=== PATIENT | male | born 1950 | race Caucasian/White ===

== ENCOUNTER → 2020-08-25 00:24 | Outpatient (CLI) | payer OTHER, SELFPAY ==
[2020-08-25 18:31] LABS: SARS-CoV-2 RNA PCR Negative
== END ==
PROVIDERS: PCP Family Medicine; Visit Provider Internal Medicine Critical Care Medicine
DX: Z01.812 Encounter for preprocedural laboratory examination (principal); Z20.822 Contact with and (suspected) exposure to COVID-19
CPT/HCPCS: C9803; U0003; U0005

== ENCOUNTER → 2020-08-31 00:27 | Outpatient (CLI) | payer OTHER, SELFPAY ==
[2020-08-31 19:29] LABS: SARS-CoV-2 RNA PCR Negative
== END ==
PROVIDERS: PCP Family Medicine; Visit Provider Internal Medicine Critical Care Medicine
DX: R68.89 Other general symptoms and signs (principal); Z20.822 Contact with and (suspected) exposure to COVID-19
CPT/HCPCS: C9803; U0003; U0005

== ENCOUNTER 2020-09-02 00:46 | Outpatient (CLI) | payer OTHER, SELFPAY ==
--- NOTE | 2020-09-09 20:58 | WPDSLEEPSTUD ---
Sleep Study Date of Study: 09/02/20 Ordering Provider: William Rosas MD Interpreting Physician: Kylee Quintero MD Sleep Study Type: Polysomnogram Height: 1.73 m Weight: 86.183 kg Body Mass Index: 28.8 Neck Circumference (inches): 15.5 [place]: 13 Reason for Sleep Study Poor sleep for years, difficulty getting to sleep and staying asleep, cannot sleep in the day, only 3-4 hour intervals. Home sleep test with less than 2 hours of data, not reliable Sleep History Charlie Woodall is a 70-year-old man who has difficulty sleeping during the day. He describes having fragmented sleep. He snores, his sleep is not restorative and he has been told he stops breathing while sleeping. He occasionally awakens from sleep feeling short of breath. He rarely awakens at night with heartburn, belching or coughing. He occasionally snores and occasionally is loud enough that others complain about it. He rarely has trouble sleeping with a cold. He rarely gasp for breath at night. He occasionally has breathing problems at night observed by others. He rarely sweats excessively at night and rarely notes his heart pounding or beating irregularly at night. He occasionally falls asleep during the day, occasionally involuntarily, rarely while driving. He does not have loss of muscle tone with strong emotion. He frequently has daytime difficulties due to his excessive sleepiness. He rarely feels paralyzed on waking or falling asleep. He rarely has nightmares. He occasionally remembers his dreams. He frequently has racing thoughts. He occasionally feels sad, depressed or anxious. He frequently has muscular tension. He rarely notices parts of his body jerking and he rarely kicks at night. He does not have crawling or aching feelings in his legs. He occasionally has leg pain at night. He rarely has morning jaw pain and rarely grinds his teeth during sleep. He frequently wakes up feeling stiff in the morning with sore or achy muscles. He frequently wakes up with pain in the neck and spine. He has fatigue, short term memory problems, tension. His normal bedtime is between 2:00 a.m. and 6:00 a.m. 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 He previously worked from 6:00 p.m. until 2:00 a.m., would come home and sleeps from 2:00 a.m. until 6:00 a.m. and then return to sleep in the afternoon from 1:00 p.m. to 4:30 p.m.. It takes him between 45 minutes to an hour to fall asleep. He typically wakes 2-3 times after he falls asleep. During these awakenings, he usually stays awake for 1-2 hours. When he awakes, he goes to urinate and he may watch the news. During the work week, he sleeps during the day. On weekends, he sleeps at night. He is not able to sleep more than 4-5 hours total during the day, and cannot sleep after 3:00 p.m. He does not drink coffee or tea within 2 hours of his expected bedtime. He takes naps in the afternoon or evening. A short nap is not refreshing. He never feels rested. He frequently has daytime sleepiness, and excessive sleepiness that impacts his job. He is really sleepy at 2:00 a.m. while at work. He has problems with sexual functioning. He occasionally has memory or concentration problems. He rarely has morning headaches. He rarely awakens feeling refreshed. Habits: Never smoked tobacco. Caffeine 6 cups at work. No alcohol or recreational drugs. [facility] Past Medical History Medical History (Updated 09/10/20 @ 13:19 by Kylee Quintero MD) Depression Erectile dysfunction Fatigue Heartburn Hypersomnolence Shift work sleep disorder Family History Family History (System 08/27/20 @ 10:29 by Irma Irizarry) Father Hypertension Family history of elevated blood lipids Family history of cardiovascular disease Mother Hypertension Family history of cardiovascular disease Social History Social History (Updated 09/09/20 @ 21:08 by Kylee Quintero MD) Smoking stat
[2020-09-10 13:20] VITALS: BMI 28.8
== END 2020-09-02 00:47 | disposition home or self-care (01) ==
PROVIDERS: PCP Family Medicine; Visit Provider Otolaryngology
DX: G47.26 Circadian rhythm sleep disorder, shift work type (principal); R06.83 Snoring; G47.10 Hypersomnia, unspecified
CPT/HCPCS: 95810

== ENCOUNTER 2020-09-10 09:21 | Outpatient (CLI) | payer OTHER, SELFPAY | END 2020-09-10 09:22 | disposition home or self-care (01) | LOC: ANHCOVIDVC 09:21 | PROVIDERS: PCP Family Medicine | DX: Z23 Encounter for immunization (principal) | CPT/HCPCS: 0001A; 91300 ==

== ENCOUNTER 2020-10-01 09:20 | Outpatient (CLI) | payer OTHER, SELFPAY | END 2020-10-01 09:21 | disposition home or self-care (01) | LOC: ANHCOVIDVC 09:20 | PROVIDERS: PCP Family Medicine | DX: Z23 Encounter for immunization (principal) | CPT/HCPCS: 0002A; 91300 ==

== ENCOUNTER 2021-07-16 00:55 | Day surgery (SDC) | payer OTHER, MEDICARE, SELFPAY ==
[2021-07-02 11:44] VITALS: BMI 28.8
[2021-07-16 12:31] VITALS: BP 109/66; PULSE 70; RESP 16; TEMP 36.5; O2SAT 99; BMI 27.6
--- NOTE | 2021-07-16 12:35 | WPDGICN ---
Assessment and Plan Assessment and plan (1) Colon polyp: Code(s): K63.5 - Polyp of colon Status: Acute Assessment and Plan: Patient has a history of colon polyps removed. Plan is for surveillance colonoscopy now and at intervals in the future. (2) Non-small cell lung cancer: Code(s): C34.90 - Malignant neoplasm of unspecified part of unspecified bronchus or lung Status: Acute Assessment and Plan: Patient recovering from lung lobectomy for non-small all cell lung cancer. Currently felt to be free of disease continued pulmonary follow-up advised. GI Consult Note Consult date/time: 07/16/21 12:35 HPI: Charlie Woodall is a 71 year old male Presents for screening colonoscopy. He reports his current weight appetite bowel movements are normal. He denies abdominal pain. He has had no bleeding. Family history noncontributory patient does have a prior history of colon polyps last colonoscopy was 4 or 5 years ago. Patient reports he is recovering. Had lung cancer status post lobectomy in his lung is currently doing well felt to be free of disease. Review of Systems Review of Systems: All systems reviewed & are unremarkable except as noted in HPI and below PMFSH Past Medical History Medical History (Updated 06/10/21 @ 12:07 by Veto Guillermo PA-C) Depression Erectile dysfunction Fatigue Heartburn Hypersomnolence Primary lung adenocarcinoma T1bN0; RLL wedge lobectomy 12/14/20 Shift work sleep disorder Family History Family History Father Hypertension Family history of elevated blood lipids Family history of cardiovascular disease Mother Hypertension Family history of cardiovascular disease Social History Social History (Updated 09/09/20 @ 21:08 by Kylee Quintero MD) Smoking status: Never smoker Alcohol intake: current Substance use: never Substance use type: does not use Living arrangements: with family Spiritual care concerns: No Meds Home Medications and Allergies Home Medications Medication Instructions Recorded Confirmed Type tadalafil 10 mg tablet 10 mg PO DAILY PRN #30 tablet 06/10/21 07/16/21 Rx Allergies Allergy/AdvReac Type Severity Reaction Status Date / Time No Known Allergies Allergy Verified 07/16/21 12:30 Vital Signs Vital Signs - 24 hr 07/16/21 12:31 Temperature 97.7 F Pulse Rate 70 Respiratory Rate 16 Blood Pressure 109/66 Pulse Oximetry 99 Exam Narrative: Physical exam reveals patient be alert. Vital signs stable. HEENT exam is unremarkable. Patient is anicteric. Lungs are clear to auscultation and percussion. Heart is without murmur or extra sounds. Abdominal exam bowel sounds present soft nontender with no organomegaly. Digital external rectal exam normal.
[2021-07-16] MEDS: LACTATED RINGERS 1,000 ML 150 ML IV CONT (12:39)
--- NOTE | 2021-07-16 12:42 | WPDANESEPPF ---
Anes - Initial Pre Proc Eval Procedure: Operation Date: 07/16/21 13:30 Proposed Procedures p Screening Colonoscopy - Pio Oneill MD Date/Time: 07/16/21 12:42 Surgeon: Pio Oneill MD Pre Op Diagnosis: hx of colon polyps Patient Data Age: 71 Gender: M Height: 1.73 m Weight: 82.3 kg Last Vital Signs Temp 97.7 F 07/16/21 12:31 Pulse 70 07/16/21 12:31 Resp 16 07/16/21 12:31 BP 109/66 07/16/21 12:31 Pulse Ox 99 07/16/21 12:31 Allergies Allergy/AdvReac Type Severity Reaction Status Date / Time No Known Allergies Allergy Verified 07/16/21 12:30 Home Medications Medication Instructions Recorded Confirmed Type tadalafil 10 mg tablet 10 mg PO DAILY PRN #30 tablet 06/10/21 07/16/21 Rx Patient hx anesthesia problems: none Family hx anesthesia problems: none Results Review: All pre-operative results and documents have been reviewed as part of the pre-operative evaluation. [facility] Past Medical History Medical History (Updated 06/10/21 @ 12:07 by Veto Guillermo PA-C) Depression Erectile dysfunction Fatigue Heartburn Hypersomnolence Primary lung adenocarcinoma T1bN0; RLL wedge lobectomy 12/14/20 Shift work sleep disorder Family History Family History Father Hypertension Family history of elevated blood lipids Family history of cardiovascular disease Mother Hypertension Family history of cardiovascular disease Social History Social History (Updated 09/09/20 @ 21:08 by Kylee Quintero MD) Smoking status: Never smoker Alcohol intake: current Substance use: never Substance use type: does not use Living arrangements: with family Spiritual care concerns: No Anes - Eval Final PreProcedure Day of Procedure 07/16/21 12:42 Patient weight: overweight Heart: regular rate and rhythm Lungs: clear to auscultation Airway: Mallampati scale class II Neurological: alert and oriented Last oral intake: >/= 8 hours ASA classification: II Emergent: no Anesthetic plan: proceed Anesthesia type and monitoring: general GIVS and standard monitoring Results Review: All pre-operative results and documents have been reviewed as part of the pre-operative evaluation. Informed Consent: The patient's anesthetic plan and its attendant risks and benefits were discussed with the patient/family/POA. Questions were solicited and answers provided to the satisfaction of the patient/family/POA.
[2021-07-16 13:06] VITALS: BP 90/55; PULSE 74; RESP 22; O2SAT 98
[2021-07-16 13:16] VITALS: BP 115/68; PULSE 67; RESP 21; O2SAT 100
[2021-07-16 13:26] VITALS: BP 124/79; PULSE 69; RESP 21; O2SAT 100
--- NOTE | 2021-07-16 13:47 | SUR.OPER ---
Reported to Dr. Oneill that we were only able to retrieve 2 of the 3 Ascending colon polyps in the specimen jar.
== END 2021-07-16 14:00 | disposition home or self-care (01) ==
PROVIDERS: PCP Family Medicine; Visit Provider Internal Medicine Gastroenterology
PROC: 0DJD8ZZ Inspection of Lower Intestinal Tract, Via Natural or Artificial Opening Endoscopic (ICD-10-PCS; CPT 45378; principal; 2021-07-16 13:30)
DX: Z12.11 Encounter for screening for malignant neoplasm of colon (principal); D12.2 Benign neoplasm of ascending colon; D12.3 Benign neoplasm of transverse colon; Z85.118 Personal history of other malignant neoplasm of bronchus and lung; Z90.2 Acquired absence of lung [part of]; N52.9 Male erectile dysfunction, unspecified
CPT/HCPCS: 45385; 88305; J2001; J2704; J7120

== ENCOUNTER 2021-07-25 08:39 | Observation (INO) | payer OTHER, MEDICARE, SELFPAY ==
[2021-07-25 08:54] VITALS: BP 158/83; PULSE 81; RESP 18; TEMP 36.7; O2SAT 97
--- NOTE | 2021-07-25 09:11 | ED.MALEGU ---
HPI - Male Genitourinary General Chief complaint: Urogenital-Male Stated complaint: male urogenital Time Seen by Provider: 07/25/21 09:03 History of Present Illness HPI Narrative: 71-year-old male presents to the emergency room with acute onset of urinary retention. Patient states he was seen at an urgent care 2 days ago for urinary retention and dysuria. Was evaluated and treated for urinary tract infection at that time. Patient states he has developed lower abdominal distention and discomfort. Denies nausea vomiting diarrhea constipation denies fever Related Data Allergies Allergy/AdvReac Type Severity Reaction Status Date / Time No Known Allergies Allergy Verified 07/16/21 12:30 Review of Systems Review of Systems: CONSTITUTIONAL: Denies fever, chills, or sweats. EYES: Denies visual changes, redness, or discharge. ENT: Denies rhinorrhea, congestion, sore throat, or otalgia. CARDIOVASCULAR: Denies chest pain, palpitations, or edema. RESPIRATORY: Denies cough or dyspnea. GASTROINTESTINAL: Reports lower abdominal pain. denies nausea, vomiting, or diarrhea. GENITOURINARY: Per HPI, urinary retention. SKIN: Denies rash or itching. MUSCULOSKELETAL: Denies back pain, joint pain, or myalgia. NEUROLOGIC: Denies headache, numbness, dizziness, or weakness. PSYCHIATRIC: Denies anxiety or depression. PMFSH Past Medical History Medical History Depression Erectile dysfunction Fatigue Heartburn Hypersomnolence Primary lung adenocarcinoma T1bN0; RLL wedge lobectomy 12/14/20 Shift work sleep disorder Family History Family History Father Hypertension Family history of elevated blood lipids Family history of cardiovascular disease Mother Hypertension Family history of cardiovascular disease Social History Social History Smoking status: Never smoker Alcohol intake: current Substance use: never Substance use type: does not use Spiritual care concerns: No Exam Narrative: GENERAL: Well-appearing, well-nourished, and in no acute distress. HEAD: Normocephalic, atraumatic. EYES: PERRLA and EOMI. ENT: Nares clear, no rhinorrhea or epistaxis. Mucous membranes moist. Oropharynx without tonsillar hypertrophy exudate or other lesions. Bilateral TMs pearly aguirre nonbulging NECK: Supple. No adenopathy or masses. No carotid bruits or JVD CHEST: Clear to auscultation. No respiratory distress. No wheezes rales or rhonchi HEART: Regular rate and rhythm. No murmur heard. Normal peripheral pulses. ABDOMEN: Distended lower abdomen, normal active bowel sounds. EXTREMITIES: Normal range of motion. No edema. SKIN: Warm, dry, no rash. NEURO: No focal deficits. Alert and oriented x3. PSYCH: Normal mood and affect. Course Course Emergency Course: Bladder scanner is a greater than 1000 mL of fluid. Ventura anchored. 1800 cc of urine output. 1015: Consulted with Dr. Gutierrez, recommends observation admission with every 8 hour CMP. 1045: Consulted with Dr. Blanco, hospitalist. Will admit patient to [facility], 23 hour obs. Vital Signs Vital signs: Vital Signs Temperature 36.7 C 07/25/21 08:54 Pulse Rate 81 07/25/21 08:54 Respiratory Rate 18 07/25/21 08:54 Blood Pressure 158/83 H 07/25/21 08:54 Pulse Oximetry 97 07/25/21 08:54 Temperature 36.7 C 07/25/21 08:54 Pulse Rate 81 07/25/21 08:54 Respiratory Rate 18 07/25/21 08:54 Blood Pressure 158/83 H 07/25/21 08:54 Pulse Oximetry 97 07/25/21 08:54 MDM - Male Genitourinary MDM Narrative Medical decision making narrative: 71-year-old male patient came to the emergency room with complaints of urinary retention for 3 days. Was recently being evaluated for enlarged prostate, under Dr. Mast. Was evaluated in an emergency room in [place] 2 days ago for urinary retention, diagnosed
[2021-07-25 09:16] LABS: Basophils Percent Auto 0.1 % (0.2-1.2); Hemoglobin 14.1 g/dL (14.0-18.0); Immature Granulocyte Absolute 0.07 K/mm3 (0.00-0.031); Immature Granulocyte Percent A 0.4 % (0-0.5); Lymphocytes Absolute Auto 0.75 K/mm3 (0.9-3.2); Lymphocytes Percent Auto 4.7 % (18.3-44.2); Mean Corpuscular HGB Conc 34.4 g/dl (32-36); Mean Corpuscular Volume 90.1 fl (80-100); Mean Platelet Volume 10.3 fl (7.4-10.4); Monocytes Absolute Auto 1.4 K/mm3 (0.1-0.6); Monocytes Percent Auto 8.6 % (2.6-8.5); Neutrophils Absolute Auto 13.8 K/mm3 (1.3-6.7); Neutrophils Percent Auto 86.2 % (45.5-73.1); Platelet Count Result 275 k/mm3 (150-375); Red Blood Count 4.55 M/mm3 (4.6-6.20); Red Cell Distribution Width 12.9 % (11.5-14.5)
[2021-07-25 09:20] LABS: Add Urine Microscopic? YES; Appearance Urine Clear (Clear); Bacteria Urine Trace /hpf; Bilirubin Urine Negative (Negative); Blood Urine 1+ (Negative); Color Urine Amber (Yellow); Glucose Urine UA Negative (Negative); Ketones Urine Negative (Negative); Leukocyte Esterase Ur Negative LEU/UL (Negative); Nitrate Urine Positive (Negative); Protein Urine Negative (Negative); RBC Urine 21-50 /hpf (0-2); Specific Grav Ur 1.012 (1.001-1.035); Squamous Epithelial Cell Urine Rare /hpf (Few)
[2021-07-25 09:26] LABS: Alanine Aminotransferase 24 U/L (4-50); Albumin Level 4.3 g/dL (3.5-5.1); Alkaline Phosphatase 71 U/L (38-126); Anion Gap 10 mmol/L (8-16); Aspartate Amino Transferase 34 U/L (17-59); Bilirubin,Total 1.2 mg/dL (0.2-1.3); Blood Urea Nitrogen 27 mg/dL (9-20); Calcium 9.1 mg/dL (8.4-10.2); Carbon Dioxide 20 mmol/L (22-30); Chloride 100 mmol/L (98-107); Estimated CRCL calculation 26 ml/min; Estimated Glomerular Filt Rate 27; Glucose 123 mg/dL (65-110); Potassium 3.9 mmol/L (3.4-5.0); Sodium 130 mmol/L (137-145)
[2021-07-25] MEDS: SODIUM CHLORIDE 0.9% IV 1,000 ML 250 ML IV CONT (09:42)
--- NOTE | 2021-07-25 10:30 | PC.NURSE ---
IVF rate changed to 100ml/hr per EDP
[2021-07-25 10:51] VITALS: BP 168/78; PULSE 68; RESP 16; O2SAT 100
--- NOTE | 2021-07-25 11:36 | WPDURCON ---
Assessment and Plan Assessment and plan (1) Urinary retention: Code(s): R33.9 - Retention of urine, unspecified Status: Acute Assessment and Plan: -Ventura catheter placed in ER is draining well, would continue for now and likely beyond discharge -please start Flomax - (2) Acute kidney injury: Code(s): N17.9 - Acute kidney failure, unspecified Status: Acute Assessment and Plan: -likely due to acute urinary retention, would expect relatively rapid improvement now the bladder is decompressed -given creatinine derangement may be a risk of postobstructive diuresis, which can lead to electrolyte abnormalities. As a result would maintain in hospital for observation his creatinine normalizes. -recommend Q 8 hour renal function panels with repletion of any electrolyte abnormalities -drink to thirst, IV fluids at 125 per hour normal saline, do not need to replace large volumes of fluid his diuresis is usually relatively short-lived as long as patient is feeling okay (3) Urinary tract infection: Code(s): N39.0 - Urinary tract infection, site not specified Status: Acute Assessment and Plan: Patient was diagnosed with UTI in [place], these lab results are not available. -please send urine culture - would continue cefdinir for 7 days total given UTI may have been predisposing factor leading to retention Additional Plan Urology Service will follow total duration of consult including history, exam, review of records, counselling, documentation - 40 minutes Urology Consult Note HPI Date Seen: 07/25/21 Primary Care Provider: Gigi Cornell MD Consult Narrative Narrative: Charlie Woodall is a 71 year old male with a history of BPH and elevated PSA Sineff follows with my partner Dr. Mast presenting to the emergency department this morning with complaint of urinary retention times approximately 3 days and Urology was consulted for assistance with management. Patient reports over the last week he was actually on its normal viewing trip in [facility], this week he developed pelvic discomfort, dribbling of urine, weak stream and feeling of incomplete urinary emptying. He did not have substantial dysuria, hematuria, fevers or chills. He did develop some mid lower back pain. He continued to have challenges urinating, he presented to an emergency department in [facility] on Monday and was told he had a urinary tract infection. It is unclear whether he was evaluated for urinary retention a renal function panel was sent. He was discharged home with Pyridium and Cefdinir. He continued to have challenges voiding following discharge, he flew home from [place] yesterday. He denies lower extremity swelling, chest pain, shortness of breath, GI distress. This morning continued to have abdominal pain and inability urinate and presented to the emergency department here at [facility]. On evaluation emergency room bladder scan demonstrated a 1000 cc of urine in the bladder, Ventura catheter was placed without difficulty with initial return of about 2 L of total fluid. Chemistry panel demonstrated acute renal insufficiency. Creatinine 2.40, previously his creatinine was normal at 1.04 in May 2021. After Ventura catheter decompression the patient feel significant relief of pelvic plain. Patient received a prostate MRI 07/15/2021 for workup of PSA of 9.9, this demonstrated a 82 g prostate and a single PI-RADS 4 lesion. He is n planning on a fusion biopsy in the near future with with Dr. Mast. Review of Systems Review of Systems: All systems reviewed & are unremarkable except as noted in HPI and below PMFSH Past Medical History Medical History Depression Erectile dysfunction Fatigue Heartburn Hypersomnolence Primary lung adenocarcinoma T1bN0; RLL wedge lobectomy 12/14/20 Shift work sleep disorder Family History Family
[2021-07-25 12:22] VITALS: BP 135/71; PULSE 87; RESP 16; O2SAT 97
[2021-07-25 12:50] VITALS: BP 141/72; PULSE 74; RESP 17; TEMP 36.3; O2SAT 98
--- NOTE | 2021-07-25 12:54 | PM.IMHP ---
H&P: HPI History of Present Illness Date/Time: Patient was placed observation status for expected length of stay less than 23 hours for management, will plan to re-evaluate tomorrow for improvement. 07/25/21 12:54 Chief Complaint: Oliguria Narrative: Mr. Woodall is a 71-year-old gentleman who presented emergency room with the inability to pee for the last 2 days. Patient states he has a known history of lung cancer status post right lower lobe lobectomy. Patient states that he was in [place] snownybiling and after he was done snowmobiling and he noticed he was having very little urine output. Patient states that he went to an emergency room in [place] and he asked for Ventura catheter and they refused to give him 1 and he was sent home. Patient states that he then flew back to this area and came to the emergency room. Patient states over the last 2 days he has had extremely low urine output. Patient states if he has any urine output he does have dysuria with urination. Patient denies any fever or chills. Patient denies any shortness of breath. Patient denies any CVA tenderness. Upon evaluation in emergency room patient was noted have a distended bladder and acute kidney injury and a Ventura catheter was placed and 2 L urine returned quickly. Patient states that he believes he has had a history of this in the past, but he does not have frequent urinary tract infections. Review of Systems Review of Systems: A 12 point review of systems was completed patient all pertinent positive and negative per HPI the remainder are unremarkable. [facility] Past Medical History Medical History (Updated 07/25/21 @ 13:02 by Geovanna Reed APRN) Depression Erectile dysfunction Fatigue Heartburn Hypersomnolence Primary lung adenocarcinoma T1bN0; RLL wedge lobectomy 12/14/20 Shift work sleep disorder Surgical History Surgical History (Updated 07/25/21 @ 12:59 by Geovanna Reed APRN) History of tonsillectomy Status post lobectomy of lung Right lower lobe lobectomy Family History Family History Father Hypertension Family history of elevated blood lipids Family history of cardiovascular disease Mother Hypertension Family history of cardiovascular disease Social History Social History Smoking status: Former smoker Alcohol intake: current Substance use: never Substance use type: does not use Spiritual care concerns: No Meds Home Medications and Allergies Home Medications Medication Instructions Recorded Confirmed Type tadalafil 10 mg tablet 10 mg PO DAILY PRN #30 tablet 06/10/21 07/16/21 Rx Allergies Allergy/AdvReac Type Severity Reaction Status Date / Time No Known Allergies Allergy Verified 07/25/21 11:28 Vital Signs Vital Signs - 24 hr 07/25/21 08:54 07/25/21 10:51 07/25/21 12:22 Temperature 36.7 C Pulse Rate 81 68 87 Respiratory Rate 18 16 16 Blood Pressure 158/83 H 168/78 H 135/71 Pulse Oximetry 97 100 97 Exam Narrative: Constitutional: Patient is well-nourished in no acute distress. Patient is alert oriented x3 HEENT: Moist mucous membranes. No scleral icterus. No lymphadenopathy. Neck: No carotid bruits noted no JVD noted Lungs: Lung sounds are clear to auscultation bilaterally. No accessory muscle use. No rhonchi, rales, or wheezes noted. Cardiovascular: Apical pulse is regular rate and rhythm. S1-S2 noted, no S3 or S4 noted. No gallops, murmurs, or rubs noted. Abdomen: Soft, round, and nontender. No palpable masses. Extremities: No edema. Nontender. : Ventura catheter is in place draining a clear yellow urine Skin: No rashes or lesions. Warm and dry. Skin is intact. Neurological: No focal neurological deficits. Cranial nerves II-XII grossly intact. Psychiatric: Cooperative, appropriate mood, and affect H&P: Results Labs Labs: Short CB
--- NOTE | 2021-07-25 13:01 | ADMGEN ---
This patient, Charlie Woodall, was admitted to 2 Medical Room 240-. Patient/family oriented to hospital policies and general routines including ID bracelet, bed and alarms, visiting hours, pain management, procedures, bathroom and other care routines, personal items, smoking policy, room service/diet, and visiting hours. Information on how to activate the Rapid Response Team has been discussed. Patient/Family are encouraged to report perceived risks to care and to ask questions if they do not understand what they are told or what they should do.
[2021-07-25 14:00] VITALS: BP 137/68; PULSE 98; RESP 17; TEMP 36.5; O2SAT 98
[2021-07-25] MEDS: TAMSULOSIN HCL 0.4 MG CAPSULE PO (14:00)
[2021-07-25 19:08] VITALS: BP 129/68; PULSE 89; RESP 17; TEMP 36.1; O2SAT 97
[2021-07-25] MEDS: HEPARIN SODIUM 5,000 UNITS/ML VIAL 5000 UNITS SUB-Q (20:28)
[2021-07-26 03:11] VITALS: BP 131/77; PULSE 85; RESP 17; TEMP 36.4; O2SAT 96
[2021-07-26 05:29] LABS: Basophils Percent Auto 0.4 % (0.2-1.2); Eosinophils Absolute Auto 0.1 K/mm3 (0-0.3); Eosinophils Percent Auto 0.8 % (0-4.4); Hematocrit 38.7 % (42.0-52.0); Immature Granulocyte Absolute 0.05 K/mm3 (0.00-0.031); Immature Granulocyte Percent A 0.5 % (0-0.5); Lymphocytes Absolute Auto 1.51 K/mm3 (0.9-3.2); Lymphocytes Percent Auto 14.2 % (18.3-44.2); Mean Corpuscular HGB Conc 33.6 g/dl (32-36); Mean Corpuscular Hemoglobin 31.2 pg (26-34); Mean Corpuscular Volume 92.8 fl (80-100); Mean Platelet Volume 10.9 fl (7.4-10.4); Monocytes Absolute Auto 1.1 K/mm3 (0.1-0.6); Neutrophils Absolute Auto 7.9 K/mm3 (1.3-6.7); Neutrophils Percent Auto 74.1 % (45.5-73.1); Platelet Count Result 252 k/mm3 (150-375); Red Blood Count 4.17 M/mm3 (4.6-6.20); Red Cell Distribution Width 13.2 % (11.5-14.5); White Blood Count 10.7 K/mm3 (4.5-10.0)
[2021-07-26 05:49] LABS: Alanine Aminotransferase 21 U/L (4-50); Albumin Level 3.5 g/dL (3.5-5.1); Alkaline Phosphatase 62 U/L (38-126); Anion Gap 6 mmol/L (8-16); Aspartate Amino Transferase 22 U/L (17-59); Bilirubin,Total 0.9 mg/dL (0.2-1.3); Blood Urea Nitrogen 16 mg/dL (9-20); Calcium 9.1 mg/dL (8.4-10.2); Carbon Dioxide 25 mmol/L (22-30); Chloride 105 mmol/L (98-107); Estimated CRCL calculation 60 ml/min; Estimated Glomerular Filt Rate > 60; Glucose 97 mg/dL (65-110); Potassium 3.6 mmol/L (3.4-5.0); Sodium 136 mmol/L (137-145)
[2021-07-26 08:10] VITALS: O2SAT 97
--- NOTE | 2021-07-26 08:30 | PM.DS ---
DS: Admitting Diagnosis Discharge Date 07/26/21829 Admitting Diagnosis Urinary retension DS: Discharge Diagnosis Discharge Diagnosis (1) Urinary tract infection: Code(s): N39.0 - Urinary tract infection, site not specified Status: Acute Assessment and Plan: Patient received a dose of Rocephin in the emergency room. Patient's urinalysis does for nitrates and mostly equally. Will continue with Rocephin and await culture and sensitivities. (2) Acute kidney injury: Code(s): N17.9 - Acute kidney failure, unspecified Status: Acute Assessment and Plan: Most likely secondary to obstructive uropathy from BPH. Urology has seen patient and recommended Flomax and a Ventura catheter which has been done. Will continue to hydrate patient and monitor BUN and creatinine closely. Laboratory show a postrenal azotemia by BUN creatinine ratio of 11. (3) Obstructive uropathy: Code(s): N13.9 - Obstructive and reflux uropathy, unspecified Status: Acute Assessment and Plan: Secondary to BPH. Urology has seen patient placed on Flomax. Will continue with medication. Urology states the patient will most likely need to keep Ventura catheter in place and follow-up as an outpatient. DS: Summary Hospital Course Hospital Course: Patient is a 71-year-old male with a past medical history of GERD and adenocarcinoma with thoracotomy. Patient was up in [place] [facility] when he noticed that he was not urinating as much as sees normally used to. Patient went to the ED in [place] and was discharged with antibiotics. Patient then came back to the area notice that nothing has changed. He finally came to the ER for evaluation of pelvic pain. They did insert a Ventura catheter which did yield a little over 2 L in fluid. Patient currently has a Ventura catheter in place and the pelvic pain is gone and dissipated. Patient stated that he was unable to eat due to the pain however he was able to eat a full tray this morning his appetite has returned back to normal. BUN and creatinine were also noted to be 27/2.40. UA did show positive nitrates, WBCs of 10 to 15 with trace bacteria. Urology was consulted and will follow up with the patient in the office for voiding trial and a prostate fusion. Patient is ready to go and denies any chest pain, nausea, vomiting, diarrhea, constipation, weakness, fatigue. Patient did state that he has some shortness of breath however he has had that since he has had right lung cancer and had the thoracotomy. He also stated that he has upper respiratory rattle which he stated is normal for him as well. Urology has added Flomax to his medication regimen. Status at Discharge Functional status at discharge: independent ambulation Overall status at discharge: patient is progressing back to baseline Time Spent with Patient Time attestation: Total time spent providing and/or coordinating discharge services: 42 minutes Time spent: Greater than 30 minutes Specific discharge activities: Diagnostic testing, chart review, developing a treatment plan, education, care coordination documentation, physical exam, result review Exam Const: General: cooperative, healthy appearing, no acute distress, well developed, alert and awake Nutritional Appearance: well nourished Orientation/consciousness: patient oriented x3 Limitations: no limitations HENMT: Head: normal to inspection Ears: hearing grossly normal bilaterally General nose exam: Normal external nose present Mouth: Yes Normal oral and palatal mucosa present, Yes lip normal and Yes tongue normal Teeth and gingiva: abnormal tooth and associated gingiva and poor dentition Eyes: General: appearance normal, both eyes and all related structures Neck: Neck: normal visual inspection, full ROM, trachea midline and supple Chest: Chest palpation & inspection: normal inspection of the chest Resp: Effort & Inspection: normal respiratory effort and able to spe
[2021-07-26] MEDS: HEPARIN SODIUM 5,000 UNITS/ML VIAL 5000 UNITS SUB-Q (08:57)
[2021-07-26] MEDS: TAMSULOSIN HCL 0.4 MG CAPSULE PO (08:58)
--- NOTE | 2021-07-26 11:12 | WPDUROPN2 ---
Progress Note: A&P Assessment and Plan (1) Obstructive uropathy: Code(s): N13.9 - Obstructive and reflux uropathy, unspecified Status: Acute (2) Urinary tract infection: Code(s): N39.0 - Urinary tract infection, site not specified Status: Acute Assessment and Plan: Urine culture is pending, however he was on Cefdinir from his previous ER visit. He will continue these antibiotics when he arrives home. Will look for urine culture results and tailor antibiotics if necessary. (3) Acute kidney injury: Code(s): N17.9 - Acute kidney failure, unspecified Status: Acute Assessment and Plan: Resolved, creatinine is now 1.00. (4) Urinary retention: Code(s): R33.9 - Retention of urine, unspecified Status: Acute Assessment and Plan: Patient ok to be discharged home with johnson leg bag. He will change to a larger bag at nighttime. He will follow up next week in the office for a voiding trial and continue Tamsulosin. Subjective Subjective Date/Time Seen: 07/26/21 11:12 Patient is doing well today with his johnson. He has no complaints or pain. Review of Systems Respiratory: Respiratory: Reports no additional respiratory complaints Gastrointestinal: Gastrointestinal: Denies abdominal pain, Denies nausea and Denies vomiting Genitourinary: Genitourinary: Denies hematuria, Denies flank pain, Denies urinary frequency, Reports urinary hesitancy and Denies urinary urgency Exam Resp: Effort & Inspection: normal respiratory effort Cardio: Rate: regular rate GI: GI Palp: Yes Soft to palpation and No Tenderness to palpation present (GI) : General: Yes no CVA tenderness Urinary Catheter: Urinary Catheter: patent and draining and urine clear Extrem: General: no edema Objective Data Vital Signs Vital Signs: Vital Signs - 24 hr 07/25/21 12:22 07/25/21 12:50 07/25/21 14:00 Temperature 97.3 F L 97.7 F Pulse Rate 87 74 98 Respiratory Rate 16 17 17 Blood Pressure 135/71 141/72 H 137/68 Pulse Oximetry 97 98 98 07/25/21 19:08 07/26/21 03:11 07/26/21 08:10 Temperature 97 F L 97.5 F L Pulse Rate 89 85 Respiratory Rate 17 17 Blood Pressure 129/68 131/77 Pulse Oximetry 97 96 97 Intake/Output Intake/Output: Intake & Output 07/23/21 07/24/21 07/25/21 07/26/21 23:59 23:59 23:59 23:59 Intake Total 530 1110 Output Total 4100 0 Balance -2320 -090 Meds/Results Medications: Active Medications Generic Name Dose Route Start Last Admin Trade Name Leonidesq PRN Reason Stop Dose Admin Heparin Sodium (Porcine) 5,000 units 07/25/21 21:00 07/26/21 08:57 Heparin Sodium 5,000 Units/Ml Vial SUB-Q 5,000 units Q12HR JOSE Administration Ceftriaxone Sodium/Dextrose 1 gm in 50 mls @ 100 mls/hr 07/26/21 09:00 07/26/21 09:27 Rocephin 1 Gm/D5w 50 Ml IVPB Infused Q24H JOSE Infusion Tamsulosin HCl 0.4 mg 07/25/21 12:55 07/26/21 08:58 Tamsulosin Hcl 0.4 Mg Capsule PO 0.4 mg QAM JOSE Administration Labs Labs: Laboratory Results - last 24 hr 07/26/21 07/26/21 04:39 04:39 WBC 10.7 H RBC 4.17 L Hgb 13.0 L Hct 38.7 L MCV 92.8 MCH 31.2 MCHC 33.6 RDW 13.2 Plt Count 252 MPV 10.9 H Immature Gran % (Auto) 0.5 Neut % (Auto) 74.1 H Lymph % (Auto) 14.2 L Collier % (Auto) 10.0 H Eos % (Auto) 0.8 Baso % (Auto) 0.4 Lymph # (Auto) 1.51 Collier # (Auto) 1.1 H Eos # (Auto) 0.1 Baso # (Auto) 0.0 Abs Immat Gran (auto) 0.05 H Absolute Neuts (auto) 7.9 H Absolute Nucleated RBC 0.0 Nucleated RBC % 0.0 Sodium 136 L Potassium 3.6 Chloride 105 Carbon Dioxide 25 Anion Gap 6 L BUN 16 D Creatinine 1.00 Estim Creat Clear Calc 60 Estimated GFR > 60 Glucose 97 Calcium 9.1 Total Bilirubin 0.9 AST 22 ALT 21 Alkaline Phosphatase 62 Total Protein 6.0 L Albumin 3.5 Quality VTE Prophylaxis VTE prophylaxis: mechanical ordered and pharmacologic orde
== END 2021-07-26 13:35 | disposition home or self-care (01) ==
LOC: ANHED 09:27 → ANH2MED 11:55
PROVIDERS: Emergency Medicine; Nurse Practitioner Adult Health; Admitting Provider Internal Medicine; Emergency Provider Nurse Practitioner Family; PCP Family Medicine; Visit Provider Internal Medicine
DX: N39.0 Urinary tract infection, site not specified (principal); N13.9 Obstructive and reflux uropathy, unspecified; N17.9 Acute kidney failure, unspecified; R34 Anuria and oliguria; N40.1 Benign prostatic hyperplasia with lower urinary tract symptoms; K21.9 Gastro-esophageal reflux disease without esophagitis; Z90.2 Acquired absence of lung [part of]; Z87.891 Personal history of nicotine dependence; Z85.118 Personal history of other malignant neoplasm of bronchus and lung
CPT/HCPCS: 36415; 80053; 81001; 85025; 87086; 96361; 96365; 96372; 99285; A9270; G0378; J0696; J1644; J7030

== ENCOUNTER 2021-08-09 11:21 | Emergency (ER) | payer MEDICARE, OTHER, SELFPAY ==
--- NOTE | ~2021-08-09 | XR_ITS ---
XR hand LT min 3V 08/09/2021 11:43 Indication: Status post fall. Left hand pain. Procedure: 3 views left hand Comparison: No prior studies for comparison. Findings: There is a healed third distal phalangeal fracture. There is mild polyarticular osteoarthri tis. No other fracture or traumatic malalignment. No significant soft tissue abnormality. No foreign bodies. Impression: 1: No acute bone or joint abnormality. Reviewed, dictated and finalized at location B. Impression: 1: No acute bone or joint abnormality.
[2021-08-09 11:36] VITALS: BP 120/68; PULSE 104; RESP 18; TEMP 36.7; O2SAT 98
--- NOTE | 2021-08-09 11:55 | ED.GENADULT ---
HPI - General Adult General Chief complaint: Extremity Injury, Upper Stated complaint: Left Hand Pain Time Seen by Provider: 08/09/21 11:45 Source: patient Mode of arrival: ambulatory Limitations: no limitations History of Present Illness HPI narrative: 71-year-old male presented for complaint of left hand pain and swelling after injury 2 days ago. He states he fell, landing on the left hand and scraping his forehead on asphalt. Has been soaking the hand in warm water and Epson salt and taking Tylenol as needed. Denies numbness, tingling, or weakness. Swelling limits range of motion. States he is unsure if he felt dizzy prior to the fall but knows he stumbled. Did not lose consciousness. Denies neck pain, headache, dizziness, nausea, unsteady gait. Endorses he has increased his dose of Flomax per providers instructions and has noticed fatigue and low blood pressure. Related Data Allergies Allergy/AdvReac Type Severity Reaction Status Date / Time No Known Allergies Allergy Verified 07/25/21 11:28 Review of Systems Review of Systems: CONSTITUTIONAL: Denies body aches, fever, chills EYES: Denies visual changes ENT: Denies rhinorrhea, congestion CARDIOVASCULAR: Denies chest pain, palpitations, or edema. RESPIRATORY: Denies cough or dyspnea. GASTROINTESTINAL: Denies abdominal pain, nausea, vomiting, or diarrhea. SKIN: abrasions to forehead and scalp MUSCULOSKELETAL: left hand pain bruising swelling. NEUROLOGIC: Denies headache, numbness, tingling, or weakness. PSYCH: Denies depression or anxiety. All systems reviewed & are unremarkable except as noted in HPI and below PMFSH Past Medical History Medical History (Updated 08/09/21 @ 11:58 by Maritza Rangel APRN) Depression Erectile dysfunction Fatigue Heartburn Hypersomnolence Primary lung adenocarcinoma T1bN0; RLL wedge lobectomy 12/14/20 Shift work sleep disorder Surgical History Surgical History History of tonsillectomy Status post lobectomy of lung Right lower lobe lobectomy Family History Family History Father Hypertension Family history of elevated blood lipids Family history of cardiovascular disease Mother Hypertension Family history of cardiovascular disease Social History Social History Smoking status: Former smoker Alcohol intake: current Substance use: never Substance use type: does not use Spiritual care concerns: No Comments At time of signature, I have reviewed and agree with nursing past medical, surgical, social and family history unless otherwise noted. Please see nursing chart for further information. There is no relevant family history pertinent to the presenting complaint Exam Narrative: GENERAL: Well-appearing, in no acute distress. HEAD: Normocephalic, atraumatic. EYES: PERRLA, conjunctivae clear NECK: Supple. CHEST: Speaks in full sentences. No respiratory distress. HEART: Regular rate and rhythm. Normal and equal peripheral pulses. EXTREMITIES: left hand has normal sensation, limited range of motion to fingers due to swelling; moderate edema and ecchymosis to palmar surface of hand, point tenderness over 3rd mcp. No open wounds, skin tenting, or obvious deformity; pulse palpable and equal bilaterally, skin warm, dry, pink. Capillary refill less than 3 seconds. SKIN: Warm, dry, abrasion to left eyebrow, right forehead, right temporal scalp, no active drainage or signs of infection NEURO: Alert and oriented x3. PSYCH: Normal mood and affect Course Course Emergency Course: Patient is aware of diagnosis, understands and agrees to treatment plan. Anticipatory guidance given. Patient agrees to follow-up as directed and is aware of reasons to seek care at the emergency department. Portions of this record may have been created with voice re
== END 2021-08-09 12:00 | disposition home or self-care (01) ==
PROVIDERS: Emergency Provider Nurse Practitioner Family; PCP Family Medicine
DX: S63.92XA Sprain of unspecified part of left wrist and hand, initial encounter (principal); S00.81XA Abrasion of other part of head, initial encounter; S66.912A Strain of unspecified muscle, fascia and tendon at wrist and hand level, left hand, initial encounter; W19.XXXA Unspecified fall, initial encounter
CPT/HCPCS: 73130; 99213; G0463

== ENCOUNTER 2022-06-14 09:03 | Outpatient (CLI) | payer MEDICARE, OTHER, SELFPAY ==
--- NOTE | 2022-06-14 09:08 | EST_ITS ---
Patient Info Name: Charlie Woodall Age: 72 years : 1950 Gender: Male Ht: 69 in Wt: 190 lbs BSA: 2.07 m2 Technical Quality: Good Exam Date: 06/14/2022 9:23 AM Exam Location: [facility] Patient Status: Outpatient Admit Date: 06/14/2022 Staff Ordering Physician: Veto Guillermo PA-C [employer] Developer: Krysten Patel RDCS Attending Provider: DR. GONZALES Referring Physician: Eagle ZALDIVAR; Exercise Technologist: Cheri Jose CT Exercise Physician: Justin Gonzales DO Exam Type: CA stress echo Study Info Indications R07.9 - Chest pain, unspecified Treadmill exercise stress echocardiogram is performed. Summary 1. 1. Negative Derrell exercise stress test for ischemic ST changes by ECG criteria. 2. 2. Reduced functional capacity, achieving 6.5 METs of workload. 3. 3. Baseline hypertension. 4. 4. Appropriate HR response to exercise. 5. 5. Appropriate HR recovery at 1 minute post exercise. 6. 6. Negative stress echocardiogram for ischemia by wall motion analysis. 7. 7. Patient informed of the above results. Stress Echo Findings Left Ventricle Appropriate increase in LV endocardial thickening with systole. Appropriate augmentation of contractility with systole. No wall motion abnormality. Left Ventricle Normal LV systolic function, no wall motion abnormality. Protocol: Derrell Stress ECG Details Stage: REST Duration (min): 0 min : 51 sec Speed (mph): 0.0 Grade (%): 0 HR (bpm): 72 SBP (mmHg): 143 DBP (mmHg): 77 METS: --- Stage: REST Duration (min): 11 min : 20 sec Speed (mph): 0.0 Grade (%): 0 HR (bpm): 68 SBP (mmHg): 143 DBP (mmHg): 77 METS: --- Stage: STAGE 1 Duration (min): 1 min : 0 sec Speed (mph): 1.7 Grade (%): 10 HR (bpm): 104 SBP (mmHg): 143 DBP (mmHg): 77 METS: --- Stage: STAGE 1 Duration (min): 2 min : 0 sec Speed (mph): 1.7 Grade (%): 10 HR (bpm): 120 SBP (mmHg): 143 DBP (mmHg): 77 METS: --- Stage: STAGE 1 Duration (min): 3 min : 0 sec Speed (mph): 1.7 Grade (%): 10 HR (bpm): 124 SBP (mmHg): 191 DBP (mmHg): 99 METS: --- Stage: STAGE 2 Duration (min): 1 min : 0 sec Speed (mph): 2.5 Grade (%): 12 HR (bpm): 137 SBP (mmHg): 191 DBP (mmHg): 99 METS: --- Stage: STAGE 2 Duration (min): 1 min : 1 sec Speed (mph): 0.0 Grade (%): 0 HR (bpm): 138 SBP (mmHg): 191 DBP (mmHg): 99 METS: --- Stage: RECOVERY Duration (min): 0 min : 58 sec Speed (mph): 0.0 Grade (%): 0 HR (bpm): 105 SBP (mmHg): 155 DBP (mmHg): 59 METS: --- Stage: RECOVERY Duration (min): 1 min : 58 sec Speed (mph): 0.0 Grade (%): 0 HR (bpm): 91 SBP (mmHg): 155 DBP (mmHg): 59 METS: --- Stage: RECOVERY Duration (min): 2 min : 57 sec Speed (mph): 0.0 Grade (%): 0 HR (bpm): 85 SBP (mmHg): 171 DBP (mmHg): 59 METS: --- Rest HR: 68 bpm Peak HR: 138 bpm Rest Sys BP: 143 mmHg Peak Sys
== END 2022-06-14 09:04 | disposition home or self-care (01) ==
PROVIDERS: PCP Family Medicine; Visit Provider Physician Assistant
DX: R07.9 Chest pain, unspecified (principal); I10 Essential (primary) hypertension
CPT/HCPCS: 93351

== ENCOUNTER 2023-03-08 09:38 | Outpatient (CLI) | payer MEDICARE, OTHER, SELFPAY ==
--- NOTE | 2023-03-09 09:42 | WPDPFTINT ---
PFT Procedure Performed PFT Procedure Performed Spirometry with Pre/Post Bronchodilator Plethysmography (Lung Vol) Diffusing Cap (DLCO) Flow Vol Loop PFT Interpretation This is a pulmonary function test with pre and post-bronchodilator spirometry, plethysmography and diffusing capacity. The test was performed and results interpreted in accordance with the 2019 and 2005 ATS/ERS Task Force guidelines respectively using the Global Lung Function Initiative-2012 reference equations. Patient demonstrated good effort and cooperation. Reproducibility criteria were met. The quality of the pre bronchodilator spirometry maneuver was Grade A and post bronchodilator spirometry maneuver was Grade B. Findings: Spirometry: The contour the inspiratory and expiratory flow tracing are normal. The pre bronchodilator FVC is 3.42 L, 86% predicted. The pre bronchodilator FEV1 is 2.74 L, 91% predicted. The pre bronchodilator FEV1: FVC ratio is 80%. The post bronchodilator FVC is 3.10 L, representing a 9% decrease. The post bronchodilator FEV1 is 2.67 L, representing a 2% decrease. The post bronchodilator FEV1: FVC ratio was 86%. Plethysmography: The total lung capacity is 5.13 L, 75% predicted. The functional residual capacity is 1.97 L, 54% predicted. The residual volume is 1.71 L, 70% predicted. Diffusing capacity: The diffusing capacity unadjusted for hemoglobin and carboxyhemoglobin is 16.7, 67% predicted. The diffusing capacity adjusted for alveolar volume is 4.90, 126% predicted. Impression: There is a mild restrictive ventilatory abnormality with a normal FEV1. The spirometry is normal without evidence of an obstructive abnormality. There is no significant improvement after inhaling a single dose of albuterol. The diffusing capacity unadjusted for hemoglobin and carboxyhemoglobin is mildly decreased and normalizes when adjusted for alveolar volume. There are no prior studies for comparison.
== END 2023-03-08 09:39 | disposition home or self-care (01) ==
LOC: ANHPFT 09:39
PROVIDERS: PCP Family Medicine; Visit Provider Family Medicine
DX: R06.02 Shortness of breath (principal); C34.90 Malignant neoplasm of unspecified part of unspecified bronchus or lung; R94.2 Abnormal results of pulmonary function studies
CPT/HCPCS: 94060; 94726; 94729

== ENCOUNTER 2023-04-19 12:44 | Outpatient (CLI) | payer MEDICARE, OTHER, SELFPAY ==
--- NOTE | ~2023-04-19 | MR_ITS ---
EXAMINATION: MR brain/brain stem wo/w con DATE: 04/19/2023 13:33 INDICATION: Amnesia TECHNIQUE: Magnetic resonance imaging (MRI) of the brain and brainstem was performed without and with 17 mL Multihance intravenous contrast. Sequences included sagittal and axial T1-weighted SE, axial d iffusion-weighted FS SE, axial 3D SWAN, axial T2-weighted FLAIR, and axial T2-weighted FSE. Postcontr ast axial and coronal T1-weighted SE was obtained. Apparent diffusion coefficient (ADC) maps were cre ated. COMPARISON: 10/20/2006 FINDINGS: There are no areas of restricted diffusion to suggest acute infarction. No intracranial hemorrhage or abnormal intracranial mass lesion. Interval progression of scattered areas of nonspecific increased T2-weighted signal intensity in the cerebral white matter, predominantly involving the deep and periv entricular white matter which remains within normal limits for age. There are no intraparenchymal sig nal abnormalities seen on the other pulse sequences. The ventricles are symmetric and normal in size. There are no abnormal extra-axial fluid collections. Flow voids are seen in the cerebral arteries on the T2-weighted sequences consistent with their expected patency. Mild mucosal thickening the bilate ral ethmoid sinuses. Visualized orbits and soft tissues are unremarkable. There are no areas of abnor mal enhancement on the post contrast images. IMPRESSION: 1. Interval progression of still age-appropriate mild scattered periventricular predominant white mat ter T2 hyperintensity consistent with chronic small vessel ischemic disease. Reviewed, dictated and finalized at location A. R GENERATION TECHNICIAN IMPRESSION: 1. Interval progression of still age-appropriate mild scattered periventricular predominant white matter T2 hyperintensity consistent with chronic small vesse l ischemic disease.
== END 2023-04-19 12:45 | disposition home or self-care (01) ==
PROVIDERS: PCP Family Medicine; Visit Provider Physician Assistant
DX: R41.3 Other amnesia (principal)
CPT/HCPCS: 70553; A9577

== ENCOUNTER 2023-04-26 07:57 | Outpatient (CLI) | payer MEDICARE, OTHER, SELFPAY ==
--- NOTE | 2023-04-26 16:29 | WPDSIXMINUTE ---
Six Minute Walk Procedure Procedure Performed Pulmonary Stress Test (6 min walk) Six Minute Walk Six Minute Walk: This is a 6 minute walk test. The test was performed and interpreted in accordance with the 2014 ERS/ATS task force guidelines. Findings: The patient's resting room air oxygen saturation measured by pulse oximetry was 96% and heart rate was 83 bpm. Patient ambulated for 366 meters and oxygen saturation remained 94 to 96%. Heart rate at the end of the study was 109 bpm. The patient did not qualify for supplemental oxygen at rest or with ambulation. There are no prior studies for comparison.
== END 2023-04-26 07:58 | disposition home or self-care (01) ==
LOC: ANHPFT 07:58
PROVIDERS: PCP Family Medicine; Visit Provider Internal Medicine Critical Care Medicine
DX: R06.02 Shortness of breath (principal)
CPT/HCPCS: 94618

== ENCOUNTER 2023-05-01 08:08 | Outpatient (CLI) | payer MEDICARE, OTHER, SELFPAY ==
--- NOTE | ~2023-05-01 | US_ITS ---
US abdomen limited INDICATION: Right upper quadrant pain PROCEDURE: Realtime right upper abdominal ultrasound. COMPARISON: No prior studies for comparison. FINDINGS: The pancreas is normal without focal mass or pancreatic ductal dilation. Liver echotexture is increased, consistent with fatty infiltration. There is normal directional flow in the portal ve in. The gallbladder is normal without stones, gallbladder wall thickening or pericholecystic fluid. Comm on bile duct measures 4 mm. No sonographic Navarrete's sign. IMPRESSION: 1: Hepatic steatosis. Reviewed, dictated and finalized at location B. AVER JEWELRY IMPRESSION: 1: Hepatic steatosis.
== END 2023-05-01 08:09 | disposition home or self-care (01) ==
LOC: ANHIMG 08:13
PROVIDERS: PCP Family Medicine; Visit Provider Physician Assistant
DX: R10.11 Right upper quadrant pain (principal); K76.0 Fatty (change of) liver, not elsewhere classified
CPT/HCPCS: 76705

== ENCOUNTER 2023-05-05 09:22 | Outpatient (NON) | payer MEDICARE, OTHER, SELFPAY ==
[2023-05-05 12:48] LABS: IFOB Positive Control Positive; Immunochemical Fecal Occult Bl Positive (N)
== END 2023-05-05 09:23 | disposition home or self-care (01) ==
LOC: ANHGOSHLAB 09:23
PROVIDERS: PCP Family Medicine; Visit Provider Physician Assistant
DX: D64.9 Anemia, unspecified (principal); R74.8 Abnormal levels of other serum enzymes
CPT/HCPCS: 82274

== ENCOUNTER 2023-06-30 08:06 | Emergency (ER) | payer MEDICARE, OTHER, SELFPAY ==
[2023-06-30] VITALS (12 sets, daily range): BP systolic 114–156; BP diastolic 72–93; PULSE 82–126; RESP 15–25; TEMP 36.8; O2SAT 97–100
--- NOTE | ~2023-06-30 | XR_ITS ---
Left Shoulder Technique: AP and scapular Y views were obtained. Clinical History: Pain Findings: No acute fracture or dislocation is seen. Old, healed fracture of the left clavicle noted. The glenohumeral and acromioclavicular joint spaces are preserved. Soft tissues are unremarkable. Impression: No acute abnormality. Old, healed fracture of the left clavicle. Reviewed, dictated and finalized at location . MANAGER Impression: No acute abnormality. Old, healed fracture of the left clavicle.
--- NOTE | ~2023-06-30 | CT_ITS ---
EXAMINATION: CT chest abdomen pelvis w con DATE: 06/30/2023 10:44 INDICATION: Left chest pain. Hemoptysis. Trauma. Left shoulder pain. TECHNIQUE: Computed tomography (CT) of the chest, abdomen, and pelvis was performed with 100 mL Omnip aque 350 intravenous contrast. Automated exposure control and iterative reconstruction technique were employed. The dose-length product was 618.64 mGy-cm. COMPARISON: Chest CT 12/25/2018 FINDINGS: CHEST CT: There are changes of right lower lobectomy. The lungs demonstrate mild atelectasis. No pleural effusi on. The heart size is normal. No pericardial effusion. There are coronary artery calcifications. The central pulmonary arteries are enlarged, consistent with pulmonary artery hypertension. There is bila teral gynecomastia. There is a moderate-sized sliding hiatal hernia. There is moderate thoracic spond ylosis. There are fractures of left ninth, 10th, and 11th ribs. ABDOMEN/PELVIS CT: A calcification in the liver is consistent with old granulomatous disease. There is diffuse hepatic s teatosis. The gallbladder, spleen, pancreas, and adrenal glands are normal. There are cysts in the ki dneys measuring up to 18 mm on the right. There is a 6 mm stone in left kidney. There is calcified at herosclerosis of the aorta and many of the other arteries. There are 2 mm and 8 mm stones in the blad mack. The prostate is mildly enlarged. There are no dilated loops of bowel. The appendix is normal. Th ere are no pathologically enlarged lymph nodes. There is no free intraperitoneal fluid. There is mild lumbar spondylosis. IMPRESSION: 1. Acute fractures of left ninth-11th ribs. 2. Diffuse hepatic steatosis. 3. Bladder stones. Nonobstructing left kidney stone. Reviewed, dictated and finalized at location A. RCOAT SPRAYER
--- NOTE | ~2023-06-30 | CT_ITS ---
Noncontrast CT scan of the cervical spine Technique: Multiple contiguous axial [address] images of the cervical spine were obtained and rec onstructed in 2D sagittal and coronal planes on the acquisition scanner. Dose reduction technique was used on this scan by utilizing automated exposure control, adjustment of the mA and/or kV according to patient size. The dose-length product (DLP) was 417.03 mGy-cm. Clinical History: Pain Findings: No fractures or dislocations. There is moderate to advanced degenerative disc narrowing at C5-C6 and C6-C7. There is left facet arthropathy at C3-C4 with left neural foraminal narrowing. Prob able minimal left neural foraminal narrowing at C4-C5 with left facet arthropathy. There is bilateral neural foraminal narrowing at C5-C6 with facet arthropathy and disc osteophyte complex present. Ther e is bilateral neural foraminal narrowing, severe in the right, at C6-C7. No prevertebral soft tissue swelling. Impression: No fracture or subluxation of the cervical spine. Degenerative spondylosis, as above. Reviewed, dictated and finalized at location M. GER PROJECT Impression: No fracture or subluxation of the cervical spine. Degenerative spondylosis, as above.
--- NOTE | ~2023-06-30 | CT_ITS ---
Non-contrast Head CT History: Status post fall Technique: Axial non-contrast imaging of the brain was performed. Dose reduction technique was used on this scan by utilizing automated exposure control and iterative reconstruction technique. The dose -length product (DLP) was 605.33 mGy-cm. Findings: There is no evidence of intracranial hemorrhage, mass lesion, or acute infarct. Brain par enchyma appears normal. The ventricles and subarachnoid spaces are normal in size. The calvarium ap pears normal. The visualized paranasal sinuses and mastoid air cells are clear. Impression: No significant abnormality seen. Reviewed, dictated and finalized at location . [facility] Impression: No significant abnormality seen.
--- NOTE | 2023-06-30 09:05 | ECG_ITS ---
Measurements Intervals [place] Rate: 72 P: -41 VT: 129 QRS: -30 QRSD: 118 T: 44 QT: 381 QTc: 419 Interpretive Statements SINUS RHYTHM BORDERLINE LEFT AXIS DEVIATION [QRS AXIS < -20] MODERATE INTRAVENTRICULAR CONDUCTION DELAY [110+ ms QRS DURATION] ABNORMAL ECG NO PREVIOUS ECG AVAILABLE FOR COMPARISON Electronically Signed On 06-30-2023 13:52:34 GLOBAL MARKETING OPERATIONS MANAGER by Michael Duke M.D.
[2023-06-30 09:27] LABS: Basophils Absolute Auto 0.1 K/mm3 (0.0-0.1); Basophils Percent Auto 0.7 % (0.2-1.2); Eosinophils Percent Auto 0.2 % (0-4.4); Hematocrit 44.3 % (42.0-52.0); Hemoglobin 14.5 g/dL (14.0-18.0); Immature Granulocyte Absolute 0.03 K/mm3 (0.00-0.031); Immature Granulocyte Percent A 0.4 % (0-0.5); Lymphocytes Absolute Auto 1.22 K/mm3 (0.9-3.2); Lymphocytes Percent Auto 14.9 % (18.3-44.2); Mean Corpuscular HGB Conc 32.7 g/dl (32-36); Mean Corpuscular Hemoglobin 30.7 pg (26-34); Mean Corpuscular Volume 93.7 fl (80-100); Mean Platelet Volume 10.1 fl (7.4-10.4); Monocytes Absolute Auto 0.7 K/mm3 (0.1-0.6); Monocytes Percent Auto 7.9 % (2.6-8.5); Neutrophils Absolute Auto 6.2 K/mm3 (1.3-6.7); Neutrophils Percent Auto 75.9 % (45.5-73.1); Platelet Count Result 215 k/mm3 (150-375); Red Blood Count 4.73 M/mm3 (4.6-6.20); Red Cell Distribution Width 13.6 % (11.5-14.5); White Blood Count 8.2 K/mm3 (4.5-10.0)
[2023-06-30 09:34] LABS: Prothrombin Time 13.2 Seconds (11.1-14.7)
[2023-06-30 09:35] LABS: Partial Thromboplastin Time 25.2 SECONDS (22.3-36.8)
[2023-06-30 09:36] LABS: Alanine Aminotransferase 64 U/L (6-50); Albumin Level 5.1 g/dL (3.5-5.1); Alkaline Phosphatase 96 U/L (38-126); Anion Gap 21 mmol/L (8-16); Aspartate Amino Transferase 67 U/L (17-59); Bilirubin,Total 1.1 mg/dL (0.2-1.3); Blood Urea Nitrogen 17 mg/dL (9-20); Calcium 9.6 mg/dL (8.4-10.2); Carbon Dioxide 17 mmol/L (22-30); Chloride 102 mmol/L (98-107); Estimated CRCL calculation 62 ml/min; Estimated Glomerular Filt Rate > 60; Glucose 74 mg/dL (65-110); Potassium 4.3 mmol/L (3.4-5.0); Sodium 140 mmol/L (137-145)
[2023-06-30 09:48] LABS: Troponin I < 0.012 ng/mL (0.000-0.034)
--- NOTE | 2023-06-30 09:58 | WC.ED.TRAUMA ---
HPI - Trauma General Chief Complaint: Trauma Stated Complaint: fell down 13 stairs Monday, coughing up blood Time Seen by Provider: 06/30/23 09:04 Source: patient Mode of arrival: ambulatory Limitations: no limitations History of Present Illness HPI narrative: Patient is a 73-year-old male who presents the ED with report of a fall. Patient reports he fell down a flight of stairs, 13 stairs total on Monday. He lost his balance and fell. Denied prodromal symptoms prior to the fall. He does not believe that he hit his head, but has had had a headache for the last 4 days. He hit his left-sided ribs against the banister and complains of pain along his lateral rib cage, L shoulder. Pain worse with deep breathing, coughing. Denies feeling short of breath. Denies anterior chest pain. He does report this pain occasionally makes him feel lightheaded, but otherwise denies dizziness. He then coughed up a small amount of blood today which prompted his presentation. Denies nausea, vomiting, vision changes, abdominal pain, focal numbness or weakness. Patient reports history of previous lung cancer with partial lobectomy of right lung in 2020. Related Data Home Medications Medication Instructions Recorded Confirmed finasteride 5 mg tablet 5 mg PO DAILY 10/26/21 06/16/23 gabapentin 300 mg capsule 300 mg PO QHS PRN Pain 05/04/22 06/16/23 [id number] acid-vit 1 tablet PO DAILY 05/04/22 06/16/23 K-lycop 400 mcg-20 mcg-370 mcg tablet (Men's 50 Plus Multivitamin) omeprazole 20 mg capsule,delayed 40 mg PO BID 05/04/22 06/16/23 release oxycodone 5 mg capsule 5 mg PO Q8H PRN Pain 05/04/22 06/16/23 zolpidem 10 mg tablet 10 mg PO QHS PRN Insomnia 05/04/22 06/16/23 tadalafil 10 mg tablet 10 mg PO DAILY 05/18/23 06/16/23 tamsulosin 0.4 mg capsule 0.4 mg PO BID 05/18/23 06/16/23 acetaminophen 500 mg capsule 500 mg PO Q6H PRN 06/15/23 06/16/23 armodafinil 200 mg tablet (Nuvigil) 200 mg PO QAM 06/15/23 06/16/23 benzonatate 200 mg capsule 200 mg PO BID PRN 06/15/23 06/16/23 magnesium 200 mg tablet 400 mg PO DAILY 06/15/23 06/16/23 Allergies Allergy/AdvReac Type Severity Reaction Status Date / Time No Known Allergies Allergy Verified 06/16/23 10:37 Review of Systems Review of Systems: CONSTITUTIONAL: Denies fever, chills, or sweats. CARDIOVASCULAR: Denies chest pain. RESPIRATORY: See HPI GASTROINTESTINAL: Denies abdominal pain, nausea, vomiting, or diarrhea. GENITOURINARY: Denies dysuria or hematuria. MUSCULOSKELETAL: See HPI NEUROLOGIC: See HPI All systems reviewed & are unremarkable except as noted in HPI and below PMFSH Past Medical History Medical History Acute kidney injury Depression Erectile dysfunction Fatigue Heartburn Hypersomnolence Obstructive uropathy Primary lung adenocarcinoma T1bN0; RLL wedge lobectomy 12/14/20 Right upper quadrant pain Shift work sleep disorder Urinary retention Surgical History Surgical History History of tonsillectomy Status post lobectomy of lung Right lower lobe lobectomy Family History Family History Father Hypertension Family history of elevated blood lipids Family history of cardiovascular disease Mother Hypertension Family history of cardiovascular disease Social History Social History Smoking status: Never smoker Alcohol intake: former Alcohol use details: occasionally Substance use: never Substance use type: does not use Do You Feel Safe in your Home?: Yes Lack of Transportation: No Lack of Food: Sometimes True Current Housing: I Have Housing Concerned About Future Housing: No Difficulty Paying Gas/Electric Bills: No Difficulty Paying for Meds: No Currently Unemployed: No Education:
[2023-06-30] MEDS: SODIUM CHLORIDE 0.9% IV 1,000 ML 999 ML IV CONT (10:17)
== END 2023-06-30 13:04 | disposition home or self-care (01) ==
PROVIDERS: Emergency Provider Physician Assistant; PCP Family Medicine
DX: S22.42XA Multiple fractures of ribs, left side, initial encounter for closed fracture (principal); S46.912A Strain of unspecified muscle, fascia and tendon at shoulder and upper arm level, left arm, initial encounter; G47.26 Circadian rhythm sleep disorder, shift work type; Z85.118 Personal history of other malignant neoplasm of bronchus and lung; Z90.2 Acquired absence of lung [part of]; M47.812 Spondylosis without myelopathy or radiculopathy, cervical region; K76.0 Fatty (change of) liver, not elsewhere classified; N20.0 Calculus of kidney; I45.9 Conduction disorder, unspecified; W10.9XXA Fall (on) (from) unspecified stairs and steps, initial encounter
CPT/HCPCS: 36415; 70450; 71260; 72125; 73030; 74177; 80053; 84484; 85025; 85610; 85730; 93005; 96360; 99284; J7030; Q9967

== ENCOUNTER 2023-09-29 07:32 | Outpatient (CLI) | payer MEDICARE, OTHER, SELFPAY ==
--- NOTE | 2023-09-29 07:43 | ECHO_ITS ---
Patient Info Name: Charlie Woodall Age: 73 years : 1950 Gender: Male Ht: 68 in Wt: 178 lbs BSA: 1.98 m2 HR: 59 bpm BP: 140 / 82 mmHg Heart Rhythm: Sinus Rhythm Technical Quality: Fair Exam Date: 09/29/2023 7:47 AM Exam Location: Echo Lab Patient Status: Outpatient Admit Date: 09/29/2023 Staff Ordering Physician: Justin Heaton DO Tube Bending Machine Operator: Svetlana Holt RDCS Attending Provider: Justin Heaton DO Referring Physician: Sudrashan CABALLERO; Exam Type: CA echo doppler color flow Study Info Indications R07.9 - Chest pain, unspecified Complete two-dimensional, color flow and Doppler transthoracic echocardiogram is performed. Summary 1. Complete two-dimensional, color flow and Doppler transthoracic echocardiogram is performed. 2. Left ventricular chamber dimension is normal. 3. Left ventricular systolic function is normal, estimated at 60-65%. 4. There is mild concentric increased left ventricular wall thickness. 5. The left ventricular diastolic function is normal. 6. E/e' 7 is not elevated. 7. Left atrial chamber dimension is mildly enlarged. 8. No pulmonary hypertension, estimated pulmonary arterial systolic pressure is 31 mmHg. 9. Dilated inferior vena cava with >50% collapse upon inspiration consistent with elevated right atrial pressure, 10 mmHg. Left Ventricle E/e' 7 is not elevated. Left ventricular chamber dimension is normal. Left ventricular systolic function is normal, estimated at 60-65%. There is mild concentric increased left ventricular wall thickness. The left ventricular diastolic function is normal. Right Ventricle Right ventricular systolic function is normal and with normal TAPSE 2.1 cm. Right ventricular chamber dimension is normal. Left Atria Left atrial chamber dimension is mildly enlarged. Right Atria Right atrial chamber dimension is normal. Aortic Valve The aortic valve is trileaflet. There is no aortic valve stenosis. There is no aortic valve regurgitation. Pulmonic Valve There is no pulmonic regurgitation. Mitral Valve There is no mitral valve stenosis. There is no mitral valve regurgitation. Tricuspid Valve There is no tricuspid valve regurgitation. No pulmonary hypertension, estimated pulmonary arterial systolic pressure is 31 mmHg. Pericardium/Pleural There is no pericardial effusion. Inferior Vena Cava Dilated inferior vena cava with >50% collapse upon inspiration consistent with elevated right atrial pressure, 10 mmHg. Aorta The aortic root size at the sinus of Valsalva is normal. Left Ventricular Outflow Tract Name Value Normal LVOT 2D LVOT Diameter 2.1 cm LVOT Doppler LVOT Peak Gradient 2 mmHg LVOT Mean Gradient 1 mmHg LVOT VTI 16 cm LVOT VTI/AV VTI Ratio 0.7 LVOT Stroke Volume 57 ml LVOT CO 3.4 l/min LVOT CI 1.7 l/min/m2 Pulmonic Valve Name Value Normal
== END 2023-09-29 07:33 | disposition home or self-care (01) ==
LOC: ANHCARD 07:33
PROVIDERS: PCP Family Medicine; Visit Provider Internal Medicine Cardiovascular Disease
DX: R07.9 Chest pain, unspecified (principal)
CPT/HCPCS: 93306

== ENCOUNTER 2023-10-25 01:08 | Day surgery (SDC) | payer MEDICARE, OTHER, SELFPAY ==
[2023-10-05 13:50] VITALS: BMI 27.4
[2023-10-25 09:15] VITALS: BP 149/82; PULSE 90; RESP 16; TEMP 36.4; O2SAT 100
[2023-10-25] MEDS: LACTATED RINGERS 1,000 ML 150 ML IV CONT (09:28)
--- NOTE | 2023-10-25 09:28 | WPDANESEPPF ---
Anes - Initial Pre Proc Eval Procedure: Operation Date: 10/25/23 10:30 Proposed Procedures p Colonoscopy - Javier Neal MD Date/Time: 10/25/23 09:28 Surgeon: Javier Neal MD Pre Op Diagnosis: Anemia, hx. colon polyps, other fecal abnorm. Patient Data Age: 73 Gender: M Height: 1.73 m Weight: 80 kg Last Vital Signs Temp 97.6 F 10/25/23 09:15 Pulse 90 10/25/23 09:15 Resp 16 10/25/23 09:15 BP 149/82 H 10/25/23 09:15 Pulse Ox 100 10/25/23 09:15 O2 Del Method Room Air 10/25/23 09:15 Allergies Allergy/AdvReac Type Severity Reaction Status Date / Time No Known Allergies Allergy Verified 10/25/23 09:14 Home Medications Medication Instructions Recorded Confirmed Type finasteride 5 mg tablet 5 mg PO DAILY 10/26/21 10/10/23 History ixhwyajcdafo-rlx-aizpu acid-vit 1 tablet PO DAILY 05/04/22 10/10/23 History K-lycop 400 mcg-20 mcg-370 mcg tablet (Men's 50 Plus Multivitamin) omeprazole 20 mg capsule,delayed 40 mg PO PRN PRN Indigestion 05/04/22 10/10/23 History release oxycodone 5 mg capsule 5 mg PO Q8H PRN Pain 05/04/22 10/10/23 History zolpidem 10 mg tablet 10 mg PO QHS PRN Insomnia 05/04/22 10/10/23 History albuterol sulfate 90 mcg/actuation 1 inh inhalation Q4H PRN shortness 07/28/22 10/10/23 Rx aerosol inhaler of breath or wheezing #8.5 grams Trelegy Ellipta 100 mcg-62.5 1 inh inhalation DAILY 90 days #60 04/03/23 10/10/23 Rx mcg-25 mcg powder for inhalation ea (xvavxmiujiz-nkfyrrrob-zkeqvdvz) metoprolol succinate 25 mg 25 mg PO DAILY #90 tabs 05/12/23 10/10/23 Rx tablet,extended release 24 hr tadalafil 10 mg tablet 20 mg PO DAILY 05/18/23 10/10/23 History tamsulosin 0.4 mg capsule 0.4 mg PO BID 05/18/23 10/10/23 History acetaminophen 500 mg capsule 500 mg PO Q6H PRN Pain 06/15/23 10/10/23 History armodafinil 200 mg tablet (Nuvigil) 200 mg PO QAM 06/15/23 10/10/23 History benzonatate 200 mg capsule 200 mg PO BID PRN Cough 06/15/23 10/10/23 History magnesium 200 mg tablet 200 mg PO DAILY 06/15/23 10/10/23 History atorvastatin 20 mg tablet 20 mg PO DAILY #90 tabs 07/19/23 10/10/23 Rx isosorbide mononitrate 30 mg 30 mg PO DAILY #30 tabs 09/08/23 10/10/23 Rx tablet,extended release 24 hr nitroglycerin 0.4 mg sublingual 0.4 mg sublingual Q5M PRN chest 09/08/23 10/10/23 Rx tablet pain #30 tabs gabapentin 300 mg capsule 300 mg PO QHS #90 caps 09/19/23 10/10/23 Rx fluticasone fur. 100 mcg-umeclid 100-62.5-25 mcg Blister With 10/12/23 10/25/23 Sample 62.5 mcg-vilant 25 mcg Device#2 Samples inhalat.powder (Trelegy Ellipta) Patient hx anesthesia problems: none Family hx anesthesia problems: none Results Review: All pre-operative results and documents have been reviewed as part of the pre-operative evaluation. [facility] Past Medical History Medical History (Updated 10/12/23 @ 11:37 by Kylee Quintero MD) Acute kidney injury COPD (chronic obstructive pulmonary disease) Depression Erectile dysfunction Fatigue Heartburn Hypersomnolence Obstructive uropathy Primary lung adenocarcinoma T1bN0; RLL wedge lobectomy 12/14/20 Right upper quadrant pain Shift work sleep disorder Urinary retention Surgical History Surgical History History of tonsillectomy Status post lobectomy of lung Right lower lobe lobectomy Family History Family History Father Hypertension Family history of elevated blood lipids Family history of cardiovascular disease Mother Hypertension Family history of cardiovascular disease Social History Social History (Updated 09/29/23 @ 10:48 by Acacia Zarco MA) Smoking status: Never smoker Alcohol intake: former Alcohol use details: no alcohol in last 6 months Substance use: never Substance use type: does not use Do You Feel Safe in your Home?: Yes Lack of Transportat
--- NOTE | 2023-10-25 09:58 | PM.HPGS ---
History of Present Illness History of Present Illness Consent: Risks, benefits, and alternatives have been discussed and questions answered. Patient agrees to proceed with procedure. Chief complaint: hx. colon polyps, other fecal abnorm. Narrative: Charlie Woodall is a 73 year old male with colon polyps in 2021 Review of Systems Review of Systems: All systems reviewed & are unremarkable except as noted in HPI and below PMFSH Past Medical History Medical History (Updated 10/12/23 @ 11:37 by Kylee Quintero MD) Acute kidney injury COPD (chronic obstructive pulmonary disease) Depression Erectile dysfunction Fatigue Heartburn Hypersomnolence Obstructive uropathy Primary lung adenocarcinoma T1bN0; RLL wedge lobectomy 12/14/20 Right upper quadrant pain Shift work sleep disorder Urinary retention Surgical History Surgical History History of tonsillectomy Status post lobectomy of lung Right lower lobe lobectomy Family History Family History Father Hypertension Family history of elevated blood lipids Family history of cardiovascular disease Mother Hypertension Family history of cardiovascular disease Social History Social History (Updated 09/29/23 @ 10:48 by Acacia Zarco MA) Smoking status: Never smoker Alcohol intake: former Alcohol use details: no alcohol in last 6 months Substance use: never Substance use type: does not use Do You Feel Safe in your Home?: Yes Lack of Transportation: No Lack of Food: Sometimes True Current Housing: I Have Housing Concerned About Future Housing: No Difficulty Paying Gas/Electric Bills: No Difficulty Paying for Meds: YES Currently Unemployed: No Education: High School Diploma/GED Difficulty w/ Childcare or Family Care: No Living arrangements: with family Spiritual care concerns: No Meds Home Medications and Allergies Home Medications Medication Instructions Recorded Confirmed Type finasteride 5 mg tablet 5 mg PO DAILY 10/26/21 10/10/23 History khogdeoquiua-scf-movda acid-vit 1 tablet PO DAILY 05/04/22 10/10/23 History K-lycop 400 mcg-20 mcg-370 mcg tablet (Men's 50 Plus Multivitamin) omeprazole 20 mg capsule,delayed 40 mg PO PRN PRN Indigestion 05/04/22 10/10/23 History release oxycodone 5 mg capsule 5 mg PO Q8H PRN Pain 05/04/22 10/10/23 History zolpidem 10 mg tablet 10 mg PO QHS PRN Insomnia 05/04/22 10/10/23 History albuterol sulfate 90 mcg/actuation 1 inh inhalation Q4H PRN shortness 07/28/22 10/10/23 Rx aerosol inhaler of breath or wheezing #8.5 grams Trelegy Ellipta 100 mcg-62.5 1 inh inhalation DAILY 90 days #60 04/03/23 10/10/23 Rx mcg-25 mcg powder for inhalation ea (ldfbsregkee-wsgrtylad-drptbmli) metoprolol succinate 25 mg 25 mg PO DAILY #90 tabs 05/12/23 10/10/23 Rx tablet,extended release 24 hr tadalafil 10 mg tablet 20 mg PO DAILY 05/18/23 10/10/23 History tamsulosin 0.4 mg capsule 0.4 mg PO BID 05/18/23 10/10/23 History acetaminophen 500 mg capsule 500 mg PO Q6H PRN Pain 06/15/23 10/10/23 History armodafinil 200 mg tablet (Nuvigil) 200 mg PO QAM 06/15/23 10/10/23 History benzonatate 200 mg capsule 200 mg PO BID PRN Cough 06/15/23 10/10/23 History magnesium 200 mg tablet 200 mg PO DAILY 06/15/23 10/10/23 History atorvastatin 20 mg tablet 20 mg PO DAILY #90 tabs 07/19/23 10/10/23 Rx isosorbide mononitrate 30 mg 30 mg PO DAILY #30 tabs 09/08/23 10/10/23 Rx tablet,extended release 24 hr nitroglycerin 0.4 mg sublingual 0.4 mg sublingual Q5M PRN chest 09/08/23 10/10/23 Rx tablet pain #30 tabs gabapentin 300 mg capsule 300 mg PO QHS #90 caps 09/19/23 10/10/23 Rx fluticasone fur. 100 mcg-umeclid 100-62.5-25 mcg Blister With 10/12/23 10/25/23 Sample 62.5 mcg-vilant 25 mcg Device#2 Samples inhalat.powder (Trelegy Ellipta) Allergies Allergy/AdvReac Type Severi
[2023-10-25 10:27] VITALS: BP 105/47; PULSE 71; RESP 18; O2SAT 98
[2023-10-25 10:37] VITALS: BP 104/46; PULSE 80; RESP 19; O2SAT 98
[2023-10-25 10:47] VITALS: BP 111/47; PULSE 76; RESP 20; O2SAT 98
== END 2023-10-25 11:02 | disposition home or self-care (01) ==
PROVIDERS: PCP Family Medicine; Visit Provider Internal Medicine Gastroenterology
PROC: 0DJD8ZZ Inspection of Lower Intestinal Tract, Via Natural or Artificial Opening Endoscopic (ICD-10-PCS; CPT 45378; principal; 2023-10-25 10:30)
DX: D12.3 Benign neoplasm of transverse colon (principal); D12.4 Benign neoplasm of descending colon; K64.8 Other hemorrhoids; D64.9 Anemia, unspecified; Z79.51 Long term (current) use of inhaled steroids; J44.9 Chronic obstructive pulmonary disease, unspecified; F32.A Depression, unspecified; Z85.118 Personal history of other malignant neoplasm of bronchus and lung; Z90.2 Acquired absence of lung [part of]
CPT/HCPCS: 45385; 88305; J2704; J7120

== ENCOUNTER 2024-10-24 07:29 | Outpatient (CLI) | payer MEDICARE, OTHER, SELFPAY ==
--- OUTSIDE RECORDS SUMMARY | 2024-10-24 07:33 | XMS_ITS | Clinical Summary ---
Author Organization [facility] Address [address] [place] [address] Care Team Providers Care Contract Specialist Name Role Phone Miladis Cornell MD Unavailable Irma Camara MD Primary Care Provider + Kylee Quintero MD Unavailable [phone] Allergies No known active allergies Medications multivitamin capsule Take 1 capsule by mouth as needed Active acetaminophen 500 mg capsuleIndicatio ns:Pain Take 2 capsules (1,000 mg total) by mouth every 6 (six) hours 30 tablet 1 Active tamsulosin (FLOMAX) 0.4 mg extended release capsule 2 Active finasteride (PROSCAR) 5 mg tablet 2 Active atorvastatin (LIPITOR) 20 mg tablet 2 Active tadalafiL (ADCIRCA) 10 mg tablet Take 1 tablet (10 mg total) by mouth daily as needed for erectile dysfunction Active methocarbamoL (ROBAXIN) 750 mg tablet Take 1 tablet (750 mg total) by mouth 4 (four) times a day 2 TABS QID PRN Active gabapentin (NEURONTIN) 300 mg capsule Take 1 capsule (300 mg total) by mouth nightly as needed Active oxyCODONE (ROXICODONE) 5 mg immediate release tabletIndication s:Pain Take 1 tablet (5 mg total) by mouth every 4 (four) hours as needed for pain Active zolpidem (AMBIEN) 10 mg tabletIndication s:Sleep-Onset Insomnia Take 1 tablet (10 mg total) by mouth nightly as needed for sleep Active armodafiniL (NUVIGIL) 200 mg tablet Take 1 tablet (200 mg total) by mouth daily NEEDED Active metoprolol XL (TOPROL-XL) 25 mg extended release tablet Take 1 tablet (25 mg total) by mouth daily Active nitroglycerin (NITROSTAT) 0.[address] 1 tablet (0.4 mg total) under the tongue every 5 (five) minutes as needed for chest pain Active tadalafiL (CIALIS) 5 mg tablet 3 Active omeprazole (PriLOSEC) 20 mg capsule Take 2 capsules (40 mg total) by mouth daily 60 capsule 3 3 Active isosorbide mononitrate ER (IMDUR) 30 mg 24 hr tablet Take 1 tablet (30 mg total) by mouth daily 4 Active Active Problems Patient Care Coordination No te Formatting of this note migh t be different from the original. Mr. Brennon Woodall is a 68-year-old with a lung nodule. Patient initially presented with symptoms of shortness of breath, intermittent chest pain with exertion and fatigue. On 12/19/2018 the patient underwent a two view chest x-ray which demonstrated a 10 mm nodule in the right lower lung zone. On 12/25/2018 the patient underwent a chest CT without contrast which confirmed an 11 mm sub solid nodule in the right lower lobe with small amount of pleural tenting. Patient is a never smoker. Patient is scheduled for a stress echo. Patient presents today for further surgical evaluation. Review of systems: General: Positive for weakness, lack of appetite, night sweats and tiredness. Genitourinary: Positive for difficulty in starting stream, urinary dribbling/incontinence, urgency in urination, and erection difficulties. EENT: Positive for tinnitus, runny nose, stuffy nose, sinus problems, sneezing, difficulty swallowing and pain with swallowing. Endocrine: Positive for heat intolerance and cold intolerance. Musculoskeletal: Positive for back pain, joint stiffness/swelling, redness of any joint, muscle aches, and joint aches. Gastrointestinal: Positive for loss of appetite, indigestion, constipation and laxative use. Cardiovascular: Positive for chest pain with exertion, sleeps with 2 or more pillows, poor circulation, and swelling of the ankle/legs. Psychiatric: Positive for difficulty in going to sleep, loss of sleep, and difficulty with memory. Respiratory: Positive for shortness of breath at rest and shortness of breath with exertion. All other systems reviewed and are negative. Problem Noted Date Diagnosed Date BPH (benign prostatic hyperplasia) 12/15/2020 Assessment & Plan (12/16/2020 8:39 AM CDT): Was given medication but insurance would not approve (tadalafil) - started flomax - D/C johnson this AM Lung nodule Assessment & Plan (12/16/2020 8:38 AM CDT): XI ROBOTIC THORACIC WEDGE RESECTION- RIGHT LOWER LOBE (Right), XI ROBOTIC LOBECTOMY (Right) - monitor CT OP - monitor air leak-he has one this AM - dIVP and oral pain medication - adjuncts for pain - Johnson to be D/C'd - DVT prophylaxis Resolved Problems Problem Noted Date Diagnosed Date Resolved Date Hyperkalemia 12/14/2020 12/16/2020 Assessment & Plan (12/16/2020 8:39 AM CDT): Noted on pre op labs Surgical History Surgery Date Site/Laterality Comments TONSILLECTOMY 05/29/1954 - 05/28/1955 COLONOSCOPY Medical History Medical History Date Comments HLD (hyperlipidemia) Enlarged prostate GERD (gastroesophageal reflux disease) Trouble swallowing Family History Medical History Relation Name Comments COPD Father Heart disease Father Heart disease Mother Heart failure Mother Anesthesia problems Neg Hx Relation Name Status Comments Father Mother Social History Tobacco Use Types Packs/Day Years Used Date Smoking Tobacco: Never Smokeless Tobacco: Never Tobacco Cessation:Counseling Given: Not Answered Alcohol Use Standard Drinks/Week Comments Yes 6 (1 standard drink = 0.6 oz pur e alcohol) AUDIT-C Answer Date Recorded Q1: How often do you have a drink containing alc ohol? 2-3 times a week 04/01/2022 Q2: How many drinks containi ng alcohol do you have on a typical day when you are drinking? 1 or 2 04/01/2022 Q3: How often do you have si x or more drinks on one occasion? 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 Not on file Not on f ile Obstetrics History Last Filed Vital Signs Vital Sign Reading Time Taken Comments Blood Pressure 114/63 03/07/2024 2:35 PM CDT Pulse 60 03/07/2024 2:35 PM CDT Temperature 37.2 C (98.9 F) 03/07/2024 2:35 PM CDT Respiratory Rate 18 03/07/2024 2:35 PM CDT Oxygen Saturation 97% 03/07/2024 2:35 PM CDT Inhaled Oxygen Concentration - - Weight 83.2 kg (183 lb 6.4 oz) 03/07/2024 2:35 P M CDT Height 175.3 cm (5' 9) 01/19/2023 12:12 PM CDT Body Mass Index 27.08 01/19/2023 12:12 PM CDT Plan of Treatment Health Maintenance Due Date Last Done Comments Colon Cancer Screening-Colonoscopy 1950 Depression Screening 1950 Hepatitis C Screening 1950 DTaP/Tdap/Td Vaccine (1 - Tdap) 1961 Hepatitis B Screening 01/24/1968 Pneumococcal vaccine 65+ (1 of 1 - PCV) 01/24/2000 Zoster Vaccine (1 of 2) 01/24/2000 Well Visit 65+ 2015 Fall Risk Assessment 04/01/2023 04/01/2022 Covid-19 Vaccine (2 - season) 2024 Influenza Vaccine (Season Ended) 2025 Insurance MEDICARE [place] [facility] INDEMNITY ID [facility] CHOICE PLUS MEDICARE [employer] MEDICARE [facility] CHOICE PLUS [facility]IC[facility] INDEMNITY [place] MEDICARE [facility] CHOICE PLUS Advance Directives For more information, please contact: [phone] * Full Code (Latest Code Status on File) Date Activated Date Inactivated Comments 04/01/2022 9:48 AM 04/01/2022 3:29 PM * Full Code Date Activated Date Inactivated Comments 12/14/2020 2:57 PM 12/16/2020 6:51 PM Care Teams Contract Specialist Relationship Specialty Start Date End Date Irma Camara MD [address] [place] [address] PCP - General Family Medicine 01/16/23 Miladis Cornell MD [address] [place] [address] Referring Physician Family Medicine 04/17/19 Kylee Quintero MD [id number] [place], [place] [id number] Consulting Physician Critical Care Med 06/16/23
--- OUTSIDE RECORDS SUMMARY | 2024-10-24 07:33 | XMS_ITS | Referral Summary ---
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 Not on file Not on f ile Last Filed Vital Signs Vital Sign Reading [...] 01/19/2023 12:12 PM CDT Plan of Treatment Not on file Insurance MEDICARE [facility] CHOICE PL[facility] MEDICARE [place] CHOICE PLUS Advance Directives For more information, please contact: [phone] * Full Code (Latest Code Status on File) Date Activated Date Inactivated Comments 04/01/2022 9:48 AM 04/01/2022 3:29 PM * Full Code Date Activated Date Inactivated Comments 12/14/2020 2:57 PM 12/16/2020 6:51 PM Care Teams Head Of Commission Department Relationship Specialty Start Date End Date Irma Camara MD [address] [place] [address] PCP - General Family Medicine 01/16/23 Miladis Cornell MD [address] [place] [address] Referring Physician Family Medicine 04/17/19 Kylee Quintero MD [address] [facility] [address] [place] [address] Consulting Physician Critical Care Med 06/16/23
--- OUTSIDE RECORDS SUMMARY | 2024-10-24 07:34 | XMS_ITS ---
Author Organization [facility] Address [address] [place], [place] [address] Care Team Providers Care Lead Former Name Role Phone WARREN ALFARO Unavailable [phone] Irma Camara Unavailable Unavailable REASON FOR VISIT bunion Encounters Encounter Location Date Provider Diagnosis [facility] [place] [address] [place], [place] [id number] 08/08/2024 WARREN ALFARO Plan Of Treatment No Information Progress Notes * Charlie WOODALLDOB:1950 (74 yo M)Acc No.[id number]:08/08/2024 Patient: Charlie CARRASCO Provider: Clif Alfaro DPM :1950 A ge:74 Y S ex:Male Date:08/08/2024 Address:[address] [facility] [id number] Subjective: * Chief Complaints: * 1 . Bunion. * Medical History: Objective: * Vitals: Assessment: Plan: * Treatment: * Billing Information: * Visit Code: * Procedure Codes: * Electronic signature of WARREN ALFARO DPM on 10/24/2024 at 07:33 AM CDT Sign off status: Pending * Provider: Clif Alfaro DPM Date: 08/08/2024 Generated for Printi ng/Fakeirag/eTransmitting on: 10/24/2024 07:33 AM CDT
--- OUTSIDE RECORDS SUMMARY | 2024-10-24 07:34 | XMS_ITS | Patient Health Record ---
Author Organization [facility] Address [address] [place], [place] [address] Care Team Providers Care Manager Technical Sales Name Role Phone WARREN OQUENDO Unavailable [phone] Irma Camara Unavailable Unavailable Allergies No Known Allergies Reason For Referral No Information Medications Medication SIG (Take, Route, Frequency, Duration) Notes Start Date End Date Status Metoprolol Succinate ER 25 MG Oral for 21 Days Active Finasteride 5 MG Oral for 90 Days Active Trelegy Ellipta 200-62.5-25 MCG/ACT Inhalation for 21 Days Activ e BinaxNOW COVID-19 Ag Home Test - In Vitro for 2 Days Active Albuterol Sulfate HFA 108 (90 Base) MCG/ACT Inhalation for 30 Days Active Tadalafil 5 MG Oral for 36 Days Active Atorvastatin Calcium 20 MG Oral for 90 Days Active Tamsulosin HCl 0.4 MG Oral for 90 Days Active Omeprazole 20 MG Oral for 90 Days Active Plan Of Treatment No Information Insurance Providers Payer Name Payer Address Payer Phone Subscriber Number Group Number Insured Name Patient Relationship to Insured Coverage Start Date Coverage End Date Medicare Railroad [place] [id number] [address] [address] [place], [place] [id number] [phone] [id number] Charlie Woodall Self - patient is the insured [facility] [address] [address] [place] [id number] Talisha Charlie Self - patient is the insured Medical (General) History Medical History History ICD Code acid reflux Cancer (type of cancer) Leg/Feet cramps Arthritis Surgical History Surgery Date(Month/Year) tonsillectomy
--- NOTE | 2024-10-24 07:43 | ECHO_ITS ---
Patient Info Name: Charlie Woodall Age: 74 years : 1950 Gender: Male Ht: 69 in Wt: 178 lbs BSA: 2.00 m2 HR: 56 bpm BP: 142 / 69 mmHg Technical Quality: Good Exam Date: 10/24/2024 8:06 AM Patient Status: O Admit Date: 10/24/2024 Exam Type: CA echo doppler color flow Complete two-dimensional, color flow and Doppler transthoracic echocardiogram is performed. Straight Line Edger: Ronda Crowder Attending Provider: Justin Heaton DO Summary 1. Complete two-dimensional, color flow and Doppler transthoracic echocardiogram is performed. 2. Left ventricular chamber dimension is normal. 3. Left ventricular systolic function is normal, estimated at 60-65. 4. There is mild concentric increased left ventricular wall thickness. 5. The left ventricular diastolic function is grade III diastolic dysfunction. 6. E/e' 11 is mildly elevated. 7. Left atrial chamber dimension is moderately enlarged. 8. There is trace mitral valve regurgitation. 9. There is trace tricuspid valve regurgitation. 10. No pulmonary hypertension, estimated pulmonary arterial systolic pressure is 25 mmHg. 11. The prox ascending aorta size is borderline dilated at 4.0 cm. Left Ventricle E/e' 11 is mildly elevated. Left ventricular chamber dimension is normal. Left ventricular systolic function is normal, estimated at 60-65. There is mild concentric increased left ventricular wall thickness. The left ventricular diastolic function is grade III diastolic dysfunction. Right Ventricle Right ventricular chamber dimension is normal. Right ventricular systolic function is normal and with normal TAPSE 2.0 cm. Left Atria Left atrial chamber dimension is moderately enlarged. Right Atria Right atrial chamber dimension is normal. Aortic Valve The aortic valve is trileaflet. There is no aortic valve stenosis. There is no aortic valve regurgitation. Pulmonic Valve There is no pulmonic regurgitation. Mitral Valve There is no mitral valve stenosis. There is trace mitral valve regurgitation. Tricuspid Valve There is trace tricuspid valve regurgitation. No pulmonary hypertension, estimated pulmonary arterial systolic pressure is 25 mmHg. Pericardium/Pleural There is no pericardial effusion. Inferior Vena Cava Normal inferior vena cava with >50% collapse upon inspiration consistent with normal right atrial pressure, 5 mmHg. Aorta The aortic root size at the sinus of Valsalva is normal. The prox ascending aorta size is borderline dilated at 4.0 cm. Left Ventricular Outflow Tract Name Value Normal LVOT Doppler LVOT Peak Velocity 78 cm/s LVOT Peak Gradient 2 mmHg LVOT Mean Gradient 1 mmHg LVOT VTI 20 cm LVOT VTI/AV VTI Ratio 0.7 Pulmonic Valve Name Value Normal PV Doppler PV Peak Velocity 72 cm/s PV Peak Gradient 2 mmHg Mitral Valve Name Value Normal MV Diastolic Function MV E Peak Velocity 108 cm/s MV A Peak Velocity 40 cm/s MV E/A 2.7 MV Decel Time (PW) 148 ms MV Annular TDI MV E/e' (Septal) 13.1 MV E/e' (Lateral) 9.5 MV E/e' (Average) 11.3 Tricuspid Valve Name Value Normal TV Regurgitation Doppler TR Peak Velocity 225 cm/s TR Peak Gradient 20 mmHg Estimated PAP/RSVP RA Pressure 5 mmHg <=5 PA Systolic Pressure 25 mmHg <36 RV Systolic Pressure 25 mmHg <36 TV Annular TDI TV Lateral Sully s' Velocity 14.0 cm/s >=9.5 Aorta Name Value Normal Ascending Aorta Ao Root Diameter (MM) 3.5 cm Ao Root Diam Index (MM) 1.7 cm/m2 Aortic Valve Name Value Normal AV Doppler AV Peak Velocity 119 cm/s AV Peak Gradient 6 mmHg AV Mean Gradient 3 mmHg AV VTI 29 cm AV DI (Bay) 0.66 Ventricles Name Value Normal LV Dimensions 2D/MM IVS Diastolic Thickness (2D) 1.4 cm 0.6-1.0 LVID Diastole (2D) 4.6 cm 4.2-5.8 LVIW Diastolic Thickness (2D) 0.9 cm 0.6-1.0 LVID Systole (2D) 2.9 cm 2.5-4.0 LV Mass (2D Cubed) 195.76 g 88.00-224.00 LV Mass Index (2D Cubed) 98 g/m2 49-115 Relative Wall Thickness (2D) 0.40 <=0.42 LV Fractional Shortening/Ejection Fraction 2D/MM LV Fractional Shortening (2D) 37 % 25-43 LV EF (2D Teichholz) 66 % LV Diastolic Volume (4C MOD) 102 ml LV EF (4C MOD) 65 % LV Diastolic Volume (2C MOD) 122 ml LV EF (2C MOD) 66 % LV Diastolic Volume (BP MOD) 112 ml 62-150 LV Diastolic Volume Index (BP MOD) 56 ml/m2 34-74 LV Systolic Volume (BP MOD) 39 ml 21-61 LV Systolic Volume Index (BP MOD) 20 ml/m2 11-31 LV EF (BP MOD) 65 % 52-72 LV Diastolic Length (4C) 8.3 cm LV Systolic Length (4C) 7.1 cm LV Stroke Volume (4C MOD) 66 ml RV Dimensions 2D/MM RVID Diastole (2D) 4.3 cm 2.1-3.5 Atria Name Value Normal LA Dimensions LA Volume (4C A-L) 83 ml LA Volume (BP A-L) 83 ml RA Dimensions RA Systolic Major [place] Length (4C) 5.4 cm 2.1-2.7 RA Area (4C) 20.0 cm2 <=18.0 Report Signatures
== END 2024-10-24 07:30 | disposition home or self-care (01) ==
LOC: ANHCARD 07:31
PROVIDERS: PCP Family Medicine; Visit Provider Internal Medicine Cardiovascular Disease
DX: R94.31 Abnormal electrocardiogram [ECG] [EKG] (principal); I25.118 Atherosclerotic heart disease of native coronary artery with other forms of angina pectoris
CPT/HCPCS: 93306; 94060; 94618; 94726; 94729

== ENCOUNTER 2024-10-24 07:33 | Outpatient (CLI) | payer MEDICARE, OTHER, SELFPAY ==
--- NOTE | 2024-10-31 12:28 | P.PCNPFT_ITS ---
PFT Procedure Performed PFT Procedure Performed Spirometry with Pre/Post Bronchodilator Plethysmography (Lung Vol) Diffusing Cap (DLCO) Flow Vol Loop PFT Interpretation DOS: 10/24/2024 REQUESTING: Kylee Quintero MD REASON FOR TESTING: COPD PULMONARY FUNCTION TESTS Results are reliable and reproducible. Repeatability of spirometry FEV1 maneuver pre and post bronchodilator is Grade B. The patient completed testing with optimal effort, although he struggled generating a strong inspiration with post spirometry and DLCO. He experienced chest tightness during testing, and he said that he had experienced the same symptoms recently. GLI 2012 reference equations were used. Spirometry: The pre-bronchodilator FEV1 is 0.99 L, 67%, decreased. The pre- bronchodilator FVC is 2.53 L, 64%, decreased. The FEV1/FVC ratio is 79%, normal. After bronchodilator, the FEV1 is 1.61 L, 54%, -19%. The post-b ronchodilator FVC is 1.83 L, 46%, -28%. The FEV1/FVC ratio is 88%, normal. Lung volumes: The total lung capacity is 4.37 L, 64%, decreased consistent with restriction. FRC is 2.42 L, 67%, normal. The residual volume is 1.13 L, 46%, decreased. The RV/TLC is 26%, decreased. Airway resistance is normal. Diffusion: DLCO is 13.7, 55%, moderately decreased. The DLCO/VA is 5.57, 144%, overcorrection when adjusted for alveolar volume. Flow volume loop: Notched expiratory flow tracing which can be seen with coughing or tracheobronchomalacia. Saw 2 inspiratory flow pattern that has been associated with upper airway obstruction and upper airway collapsibility. IMPRESSION: Decrease in FEV1 and FVC without airflow obstruction, moderate restriction and moderate diffusion impairment which overcorrects for alveolar volume. No response to bronchodilator. Abnormal flow volume loop both inspiratory and expiratory limbs. Lack of response to bronchodilator should not preclude use if clinically indicated. Compared to his prior study 03/08/2023, there has been a greater than expected decline in the FEV1 and FVC. The FEV1 was 2.74% L, 91% predicted, now is 1.99 L, 67%, 750 mL decrease. The FVC was 3.42 L, 86% predicted, now 2.53 L, 64%, almost 1 L decrease. The total lung capacity is significantly lower, 5.13 L & 75% compared to 4.37 L which is 64% at present. Diffusion has worsened, previously was 67% predicted now 55%. On the prior study, DLCO corrected for alveolar volume. DLCO/VA was 126% now over corrects to 144%. The inspiratory flow loop was not abnormal on prior testing. Kylee Quintero MD
--- NOTE | 2024-10-31 13:12 | WPDSIXMINUTE ---
Six Minute Walk Procedure Procedure Performed Pulmonary Stress Test (6 min walk) Six Minute Walk Six Minute Walk: DATE OF SERVICE: 10/24/2024 REQUESTING: Kylee Quintero MD REASON FOR TESTING: COPD SIX MINUTE WALK This test was conducted per ATS guidelines. The initial saturation was 99%, and initial heart rate was 75 beats per minute. The patient walked without stopping, completing 350.5 m/1150 ft. The saturation at the end of testing was 98%, and the heart rate was 88 beats per minute. Lowest saturation was 94%. The dyspnea/fatigue score was 1 at the beginning of the test, and this was 4-5 at the end of the test. IMPRESSION: This is a normal study. The patient did not require supplemental oxygen with exertion. Kylee Quintero MD
== END 2024-10-24 07:34 | disposition home or self-care (01) ==
PROVIDERS: PCP Family Medicine; Visit Provider Internal Medicine Critical Care Medicine
DX: J44.9 Chronic obstructive pulmonary disease, unspecified (principal)
CPT/HCPCS: 94060; 94618; 94726; 94729

== ENCOUNTER 2024-12-09 01:18 | Day surgery (SDC) | payer MEDICARE, OTHER, SELFPAY ==
[2024-12-06 13:13] VITALS: BMI 27.8
[2024-12-06 16:31] VITALS: BMI 25.1
[2024-12-09] VITALS (19 sets, daily range): BP systolic 114–144; BP diastolic 55–90; PULSE 56–75; RESP 12–20; TEMP 36.3; O2SAT 97–100
--- OUTSIDE RECORDS SUMMARY | 2024-12-09 01:22 | XMS_ITS | Referral Summary ---
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 Gender Identity Not on file Sexual Orientation Not on file 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 Not on file Not [...] of Treatment Not on file Insurance MEDICARE [facility] CHOICE PLUS MEDICARE [place]RO[employer] MEDICARE [facility] CHOICE PLUS [place] [id number] MEDICARE [place]ROAD MEDICARE [facility] MEDICARE [employer] [facility] CHOICE PLUS Advance Directives For more information, please contact: [phone] * Full Code (Latest Code Status on File) Date Activated Date Inactivated Comments 04/01/2022 9:48 AM 04/01/2022 3:29 PM * Full Code Date Activated Date Inactivated Comments 12/14/2020 2:57 PM 12/16/2020 6:51 PM Care Teams Chair Car Attendant Relationship Specialty Start Date End Date Irma Camara MD [address] [place] [address] PCP - General Family Medicine 01/16/23 Miladis Cornell MD [address] [place] [address] Referring Physician Family Medicine 04/17/19 Kylee Quintero MD [address] [place] [address] Consulting Physician Critical Care Med 06/16/23
--- OUTSIDE RECORDS SUMMARY | 2024-12-09 01:22 | XMS_ITS | Clinical Summary ---
Author Organization [facility] Address [address] [place] [address] Care Team Providers Care Paperhanger Apprentice Name Role Phone Miladis Cornell MD Unavailable Irma Camara MD Primary Care Provider + Kylee Quintero MD Unavailable [phone] Allergies No known active allergies Medications multivitamin [...] AM CDT): Noted on pre op labs Encounters Date Type Department Care Team Description 11/15/[address] 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 Not on file Not [...] Vaccine (2 - season) 2024 Influenza Vaccine (#1) 2025 Insurance MEDICARE [facility] [facility] [place]MN[place] [facility] CHOICE PLUS MEDICARE [place]ILROAD MEDICARE [facility] CHOICE [facility] [place] [facility] CHOICE PLUS Advance Directives For more information, please contact: [phone] * Full Code (Latest Code Status on File) Date Activated Date Inactivated Comments 04/01/2022 9:48 AM 04/01/2022 3:29 PM * Full Code Date Activated Date Inactivated Comments 12/14/2020 2:57 PM 12/16/2020 6:51 PM Care Teams Paperhanger Apprentice Relationship Specialty Start Date End Date Irma Camara MD [address] [place] [address] PCP - General Family Medicine 01/16/23 Miladis Cornell MD [address] [place] [address] Referring Physician Family Medicine 04/17/19 Kylee Quintero MD [address] [facility] [address] [place] [address] Consulting Physician Critical Care Med 06/16/23
--- OUTSIDE RECORDS SUMMARY | 2024-12-09 01:23 | XMS_ITS ---
Author Organization [facility] Address [address] [place], [place] [address] Care Team Providers Care Product Scientist Name Role Phone WARREN ALFARO Unavailable [phone] Irma Camara Unavailable Unavailable REASON FOR VISIT bunion Encounters Encounter Location Date Provider Diagnosis [facility] [place] [address] [place], [place] [id number] 08/08/2024 WARREN ALFARO Plan Of Treatment No Information Progress Notes * Charlie WOODALLDOB:1950 (74 yo M)Acc No.[id number]:08/08/2024 Patient: Charlie CARRASCO Provider: Clif Alfaro DPM :1950 A ge:74 Y S ex:Male Date:08/08/2024 Address:[address] [facility] Subjective: * Chief Complaints: * 1 . Bunion. * Medical History: Objective: * Vitals: Assessment: Plan: * Treatment: * Billing Information: * Visit Code: * Procedure Codes: * Electronic signature of WARREN ALFARO DPM on 12/09/2024 at 01:22 AM CDT Sign off status: Pending * Provider: Clif Alfaro DPM Date: 08/08/2024 Generated for Ana Laurai ng/Fakeirag/eTransmitting on: 12/09/2024 01:22 AM CDT
--- OUTSIDE RECORDS SUMMARY | 2024-12-09 01:23 | XMS_ITS | Patient Health Record ---
Author Organization [facility] Address [address] [place], [place] [address] Care Team Providers Care Production Service Manager Name Role Phone WARREN OQUENDO Unavailable [phone] Irma Camara Unavailable Unavailable Allergies No Known Allergies Reason For Referral No Information Medications Medication SIG (Take, Route, Frequency, Duration) Notes Start Date End Date Status Metoprolol Succinate ER 25 MG Oral; Duration: 21 Days Acti ve Finasteride 5 MG Oral; Duration: 90 Days Active Trelegy Ellipta 200-62.5-25 MCG/ACT Inhalation; Duration: 21 Days Active BinaxNOW COVID-19 Ag Home Test - In Vitro; Duration: 2 Days Active Albuterol Sulfate HFA 108 (90 Base) MCG/ACT Inhalation; Duration: 30 Days Active Tadalafil 5 MG Oral; Duration: 36 Days Active Atorvastatin Calcium 20 MG Oral; Duration: 90 Days Active Tamsulosin HCl 0.4 MG Oral; Duration: 90 Days Active Omeprazole 20 MG Oral; Duration: 90 Days Active Plan Of Treatment No Information Insurance Providers Payer Name Payer Address Payer Phone Subscriber Number Group Number Insured Name Patient Relationship to Insured Coverage Start Date Coverage End Date Medicare Railroad [place] [id number] [address] [address] [place], [place] [id number] [phone] [id number] Charlie Woodall Self - patient is the insured [facility] [address] [address] [place] [id number] Charlie Woodall Self - patient is the insured Medical (General) History Medical History History ICD Code acid reflux Cancer (type of cancer) Leg/Feet cramps Arthritis Surgical History Surgery Date(Month/Year) tonsillectomy
[2024-12-09 07:32] LABS: Hematocrit 38.5 % (42.0-52.0); Hemoglobin 12.6 g/dL (14.0-18.0); Immature Granulocyte Percent A 0.3 % (0-0.5); Lymphocytes Absolute Auto 0.93 K/mm3 (0.9-3.2); Mean Corpuscular HGB Conc 32.7 g/dl (32-36); Mean Corpuscular Hemoglobin 31.0 pg (26-34); Mean Corpuscular Volume 94.6 fl (80-100); Nucleated Red Blood Cells Absolute Auto 0.000 K/mm3 (0.0-0.012); Nucleated Red Blood Cells Perc 0.0 % (0.0-0.2); Platelet Count Result 221 k/mm3 (150-375); Red Blood Count 4.07 M/mm3 (4.6-6.20); White Blood Count 7.1 K/mm3 (4.5-10.0)
[2024-12-09 07:53] LABS: Anion Gap 7 mmol/L (4-12); Blood Urea Nitrogen 14 mg/dL (9-20); Calcium 9.4 mg/dL (8.4-10.2); Carbon Dioxide 26 mmol/L (22-30); Chloride 102 mmol/L (98-107); Estimated CRCL calculation 63 ml/min; Estimated Glomerular Filt Rate > 60; Glucose 114 mg/dL (65-110); Potassium 4.6 mmol/L (3.4-5.0); Sodium 135 mmol/L (137-145)
--- NOTE | 2024-12-09 09:27 | P.PCNCC_ITS ---
Cardiac Cath Procedure Note Date of procedure:: 12/09/24 Performing physician:: CATHETERIZATION LABORATORY REPORT Procedure Date: 12/09/2024 Referring Physician:Dr. Heaton Anesthesia: Versed and Fentanyl were ordered and given in my presence at 0848, procedure ended at 0923. Supervision of nurse, Krista Ramírez monitored moderate sedation with 2mg Versed and 100mcg Fentanyl was provided for 35 minutes. Pre-op Diagnosis: Coronary artery disease Post-op Diagnosis: coronary artery disease Procedure(s): Left heart catheterization with coronary angiography Access Site: Right radial artery Brief History and Clinical Indications: 74-year-old man with coronary artery disease and partial lung resection has been complaining of chest discomfort for which a cardiac catheterization has been recommended. All risks, benefits and alternatives to left heart catheterization with or without percutaneous coronary intervention was discussed at length with the patient. Risk of complications including but not limited to bleeding, infection, arrhythmia, stroke, worsening kidney function, blood loss, groin hematoma, limb loss, emergency coronary artery bypass grafting, and even were discussed with the patient and all questions were answered. The patient understood and wished to proceed. Time out called, patient name, date of , medical record number, allergies, procedure performed, identify Health And Wellness Instructor, patient and staff member concurred with accurate data, procedure carried on. Findings: LEFT HEART CATHETERIZATION FINDINGS: 1. Left main: The left main coronary artery is widely patent without any significant obstructive disease. 2. Left anterior descending: The LAD has no angiographic high-grade stenosis. The mid LAD has a long segment of severe myocardial bridging. The distal LAD tapers into a small caliber vessel. 3. Left circumflex: The left circumflex artery and the main marginal branches have no angiographic high-grade stenosis. 4. Right coronary artery: The RCA is a large dominant vessel with calcific 20- 40% diffuse disease in its midbody. The remainder of the vessel and its branches have luminal irregularities. 5. Left ventricle: A. End-diastolic pressure 28 mmHg. B. LV gram deferred. C. No significant gradient across aortic valve on catheter pullback. 6. Opening AO pressure 100/66 and closing AO pressure 121/56 7. Right subclavian artery patent. Description of Procedure: Informed consent signed and placed in the chart. Patient transferred to laboratory cureman room. Prepped and draped in usual sterile fashion. 2% lidocaine injected subcutaneously in right wrist area. 22-gauge venipuncture catheter used to access the right radial artery with the Seldinger technique. 6-FR slender sheath placed in right radial artery. Nitroglycerin 200mcg, Verapamil 2.5mg, and Heparin 5000U was given intraarterial through the sheath. J wire advanced under fluoroscopy and this was switched out for a versacore wire given the significant tortuosity of the innominate artery and aortic arch. A right subclavian angiogram was performed to ensure patency of vessel. The Versacore wire was then carefully negotiated into the aortic root. 5F TIG diagnostic catheter engaged Right Coronary Artery. The 5F TIG diagnostic catheter was unable to engage the left main coronary artery and was switched out for a 5 Mongolian Panchito diagnostic which also is not able to selectively engage the left main coronary artery. This was switched out for a 6 Mongolian EBU guide catheter which was able to get closest to the left main coronary artery. Non selective angiogram of the left coronary system was pe rformed. Multiple orthogonal angiogram obtained and reviewed. 5F Pigtail catheter crossed aortic valve to obtain LVEDP, LV angiogram deferred. Hemostasis was achieved by application of TR band. 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 Mild-Moderate coronary artery disease. Post Operative Condition: Stable No significant blood loss Disposition: Home Plan: The patient will be monitored in the recovery area. Continue aggressive medical therapy and risk factor modification. If further coronary angiography or intervention is require, would recommend femoral approach given significant tortuosity of the innominate artery and great difficulty engaging the left main coronary artery from radial approach. Fredi Araya Interventional Cardiology
[2024-12-09] MEDS: SODIUM CHLORIDE 0.9% IV 1,000 ML 125 ML IV CONT (10:30)
--- NOTE | 2024-12-09 11:53 | WPDHPUPDATE1 ---
History and Physical Update Update Date/Time: 12/09/24 08:23 History and Physical has been reviewed, including an updated exam of the patient. There are NO changes in the patient's condition. Risks, benefits, and alternatives have been discussed and questions answered. Patient agrees to proceed with procedure.
--- NOTE | 2024-12-09 11:53 | WPDMODSED ---
Moderate Sedation Note-Pt Data Patient Data Allergies Allergy/AdvReac Type Severity Reaction Status Date / Time No Known Allergies Allergy Verified 12/06/24 16:51 Home Medications ?Medication ?Instructions ?Recorded ?Confirmed ?Type finasteride 5 mg tablet 5 mg PO DAILY 10/26/21 12/06/24 History [id number] acid-vit 1 tablet PO DAILY 05/04/22 12/06/24 History K-lycop 400 mcg-20 mcg-370 mcg tablet (Men's 50 Plus Multivitamin) omeprazole 20 mg capsule,delayed 40 mg PO PRN PRN Indigestion 05/04/22 12/06/24 History release albuterol sulfate 90 mcg/actuation 1 inh inhalation Q4H PRN shortness 07/28/22 12/06/24 Rx aerosol inhaler of breath or wheezing #8.5 grams tamsulosin 0.4 mg capsule 0.4 mg PO BID 05/18/23 12/06/24 History acetaminophen 500 mg capsule 500 mg PO Q6H PRN Pain 06/15/23 12/06/24 History benzonatate 200 mg capsule 200 mg PO BID PRN Cough 06/15/23 12/06/24 History isosorbide mononitrate 30 mg 30 mg PO DAILY #120 tabs 12/19/23 12/06/24 Rx tablet,extended release 24 hr zolpidem 10 mg tablet 10 mg PO QHS PRN Insomnia #90 tabs 01/16/24 12/06/24 Rx B-complex with vitamin C 1 cap PO DAILY 02/07/24 12/06/24 History magnesium oxide 400 mg PO DAILY 02/07/24 12/06/24 History tadalafil 20 mg tablet 20 mg PO DAILY PRN sexual activity 02/07/24 12/06/24 History atorvastatin 20 mg tablet 20 mg PO DAILY #180 tabs 03/20/24 12/06/24 Rx aspirin 81 mg tablet,delayed 81 mg PO DAILY 04/19/24 12/06/24 History release nitroglycerin 0.4 mg sublingual 0.4 mg sublingual Q5M PRN chest 04/19/24 12/06/24 Rx tablet pain #30 tabs gabapentin 300 mg capsule 300 mg PO BID #180 caps 05/14/24 12/06/24 Rx oxycodone 5 mg capsule 5 mg PO Q8H PRN Pain #15 caps 10/03/24 12/06/24 Rx armodafinil 200 mg tablet (Nuvigil) 200 mg PO QAM #120 tabs 11/04/24 12/06/24 Rx duloxetine 30 mg capsule,delayed 30 mg PO DAILY #90 caps 11/05/24 12/06/24 Rx release metoprolol succinate 25 mg 25 mg PO DAILY #180 tabs 11/26/24 12/06/24 Rx tablet,extended release 24 hr Current Medications: Active Medications Sodium Chloride (Normal Saline Iv) 1,000 mls @ 125 mls/hr IV CONT .Q8H ONE Stop: 12/09/24 17:25 Last Admin: 12/09/24 10:30 Dose: 125 mls/hr Sedation/Anesthesia: No previous sedation/anesthesia problems (including family history). COUNTS INCLUDE 234 BEDS AT THE [facility] Past Medical History Medical History COPD (chronic obstructive pulmonary disease) Right upper quadrant pain Alcohol intoxication Obstructive uropathy Acute kidney injury Urinary retention Primary lung adenocarcinoma [id number]; RLL wedge lobectomy 12/14/20 Hypersomnolence Heartburn Depression Shift work sleep disorder Erectile dysfunction Fatigue Surgical History Surgical History History of tonsillectomy Status post lobectomy of lung Right lower lobe lobectomy Family History Family History Father Hypertension Family history of elevated blood lipids Family history of cardiovascular disease Mother Hypertension Family history of cardiovascular disease Social History Social History (Updated 10/03/24 @ 07:44 by Acacia Zarco MA) Smoking status: Never smoker Second hand tobacco smoke exposure: No Alcohol intake: former Alcohol use details: no alcohol in last 6 months, a glass of wine 1 time per month Substance use: never Substance use type: does not use Do You Feel Safe in your Home?: Yes Lack of Transportation: No Lack of Food: Sometimes True Current Housing: I Have Housing Concerned About Future Housing: No Difficulty Paying Gas/Electric Bills: No Difficulty Paying for Meds: YES Currently Unemployed: No Education: High School Diploma/GED Difficulty w/ Childcare or Family Care: No Living arrangements: with family Spiritual care concerns: No Mod Sed Physical Exam Physical Exam Pre Procedural Exam: Normal: Lungs, Heart Size, Heart Rate and Heart Rhythm Hours since solid foods: 12 Hours since liquid intake: 12 Mallampati Classification: class II Internal Medicine - PN: Obj Da Vital Signs Vital Signs: Vital Signs - 24 hr 12/09/24 07:20 12/09/24 09:45 12/09/24 09:45 Temperature 36.3 C L Pulse Rate 58 L 57 L Pulse Rate [Right Radial] 57 L Respiratory Rate 12 14 Blood Pressure 132/68 135/68 Pulse Oximetry 98 99 Oxygen Delivery Room Air Room Air 12/09/24 10:00 12/09/24 10:00 12/09/24 10:15 Temperature Pulse Rate 56 L Pulse Rate [Right Radial] 56 L 56 L Respiratory Rate 16 Blood Pressure 129/63 Pulse Oximetry 99 Oxygen Delivery Room Air 12/09/24 10:15 12/09/24 10:30 12/09/24 10:30 Temperature Pulse Rate 56 L 62 Pulse Rate [Right Radial] 62 Respiratory Rate 15 16 Blood Pressure 144/73 H 141/70 H Pulse Oximetry 99 99 Oxygen Delivery Room Air Room Air 12/09/24 10:45 12/09/24 10:45 12/09/24 11:00 Temperature Pulse Rate 72 Pulse Rate [Right Radial] 72 68 Respiratory Rate 16 Blood Pressure 130/81 Pulse Oximetry 98 Oxygen Delivery Room Air 12/09/24 11:00 12/09/24 11:15 12/09/24 11:15 Temperature Pulse Rate 68 67 Pulse Rate [Right Radial] 67 Respiratory Rate 15 14 Blood Pressure 114/90 136/63 Pulse Oximetry 98 97 Oxygen Delivery Room Air Room Air 12/09/24 11:30 12/09/24 11:30 Temperature Pulse Rate 68 Pulse Rate [Right Radial] 68 Respiratory Rate 16 Blood Pressure 126/55 L Pulse Oximetry 98 Oxygen Delivery Room Air Meds/Results Medications: Active Medications Generic Name Dose Route Start Last Admin Trade Name Freq PRN Reason Stop Dose Admin Sodium Chloride 1,000 mls @ 125 mls/hr 12/09/24 09:26 12/09/24 10:30 Normal Saline Iv IV CONT 12/09/24 17:25 125 mls/hr .Q8H ONE Administration Labs 12/09/24 07:19 12/09/24 07:19 Labs: Laboratory Results - last 24 hr 12/09/24 07:19 WBC 7.1 RBC 4.07 L Hgb 12.6 L Hct 38.5 L MCV 94.6 MCH 31.0 MCHC 32.7 RDW 13.4 Plt Count 221 MPV 9.9 Immature Gran % (Auto) 0.3 Neut % (Auto) 72.7 Lymph % (Auto) 13.2 L [place] % (Auto) 10.2 H Eos % (Auto) 2.8 Baso % (Auto) 0.8 Lymph # (Auto) 0.93 [place] # (Auto) 0.7 H Eos # (Auto) 0.2 Baso # (Auto) 0.1 Abs Immat Gran (auto) 0.02 Absolute Neuts (auto) 5.1 Absolute Nucleated RBC 0.000 Nucleated RBC % 0.0 Sodium 135 L Potassium 4.6 Chloride 102 Carbon Dioxide 26 Anion Gap 7 BUN 14 Creatinine 0.90 Estim Creat Clear Calc 63 Estimated GFR > 60 Glucose 114 H Calcium 9.4 ASA Classification/Sedation ASA Classification/Sedation ASA Class: III Emergent: No Risks: Risks, benefits and alternatives explained and patient/family accepted plan for sedation. Patient re-evaluated immediately prior to sedation.
== END 2024-12-09 14:08 | disposition home or self-care (01) ==
PROVIDERS: PCP Family Medicine; Visit Provider Internal Medicine
PROC: 4A023N7 Measurement of Cardiac Sampling and Pressure, Left Heart, Percutaneous Approach (ICD-10-PCS; CPT 93452; principal; 2024-12-09 08:30)
DX: I25.10 Atherosclerotic heart disease of native coronary artery without angina pectoris (principal); J44.9 Chronic obstructive pulmonary disease, unspecified; N13.9 Obstructive and reflux uropathy, unspecified; R33.9 Retention of urine, unspecified; G47.10 Hypersomnia, unspecified; F32.A Depression, unspecified; N52.9 Male erectile dysfunction, unspecified; Z79.51 Long term (current) use of inhaled steroids; Z79.82 Long term (current) use of aspirin; Z79.891 Long term (current) use of opiate analgesic; Z98.890 Other specified postprocedural states; Z90.2 Acquired absence of lung [part of]; Z85.118 Personal history of other malignant neoplasm of bronchus and lung; Z82.49 Family history of ischemic heart disease and other diseases of the circulatory system
CPT/HCPCS: 36415; 80048; 85025; 93458; C1769; C1887; C1894; J1644; J2003; J2250; J2305; J3010; J7030; J7040